=== PATIENT | male | born 1960 | race American Indian/Alaskan Native ===

== ENCOUNTER 2017-12-18 10:31 | Inpatient (IN) | payer OTHER ==
[2017-12-18 11:44] LABS: BUN/Creatinine Ratio 15; Blood Urea Nitrogen 12 mg/dL (9-20); Calcium 9.2 mg/dL (8.4-10.2); Hemolysis Index 6
[2017-12-18 11:48] LABS: Basophils % (Auto) 0.9 % (0.0-1.8); Eosinophils # (Auto) 0.2 K/mm3 (0.0-0.4); Eosinophils % (Auto) 4.2 % (0.0-4.3); Hematocrit 43.2 % (35.5-45.6); Hemoglobin 14.5 gm/dl (11.8-15.2); Lymphocytes # (Auto) 1.7 K/mm3 (1.2-5.4); Lymphocytes % (Auto) 36.2 % (13.4-35.0); Mean Corpuscular HGB Conc 34 % (32-34); Mean Corpuscular Hemoglobin 29 pg (28-32); Mean Corpuscular Volume 85 fl (84-94); Monocytes # (Auto) 0.7 K/mm3 (0.0-0.8); Monocytes % (Auto) 15.3 % (0.0-7.3); Platelet Count 294 K/mm3 (140-440); Red Blood Count 5.07 M/mm3 (3.65-5.03); Red Cell Distribution Width 14.6 % (13.2-15.2)
[2017-12-18] MEDS ORDERED: ASPIRIN PO ONE (13:21)
[2017-12-18] MEDS ORDERED: CATAPRES ONE (13:44)
[2017-12-18] MEDS ORDERED: CATAPRES PO ONE (13:48)
[2017-12-18] MEDS ORDERED: ZOFRAN IV ONE (14:03)
[2017-12-18] MEDS ORDERED: MORPHINE IV ONE (14:05)
--- NOTE | 2017-12-18 14:16 | Emergency Department Report ---
HPI - General Chief Complaint: Chest Pain Time Seen by Provider: 12/18/17 13:51 - HPI HPI: Room 25 The patient is a 57-year-old male presenting with a chief complaint of chest pain. The patient states 2 days ago while on a return flight from the [facility] [place], he began having pain in his right arm and and pressure across his chest. Patient states he developed left arm numbness. The patient states this chest pressure has been intermittent and he currently gives it a score of 8/10. The patient states he's had shortness of breath, nausea/ vomiting and diaphoresis with this chest pain. The patient states he has been out of his blood pressure medication and last night he developed a constant headache. The patient states he's noticed left lower extremity pain and mild swelling for one month. Patient states his last cardiac catheterization occurred 8-9 months ago when he had a cardiac stent placed Location: [See above] Duration: [See above] Quality: Pressure Severity: 8/10 Modifying factors: [see above] Context: [see above] Mode of transportation: [not driving] ED Past Medical Hx - Past Medical History Hx Hypertension: Yes Additional medical history: Hypercholesterolemia - Surgical History Additional Surgical History: Cardiac stent - Family History Family history: no significant - Social History Smoking Status: Never Smoker Substance Use Type: None (denies illicit drug use) ED Review of Systems ROS: Stated complaint: HIGH BLOOD PRESSURE Other details as noted in HPI Constitutional: diaphoresis Eyes: vision change ENT: denies: throat pain Respiratory: shortness of breath Cardiovascular: chest pain Endocrine: no symptoms reported Gastrointestinal: nausea, vomiting Genitourinary: denies: dysuria Musculoskeletal: denies: back pain Neurological: headache Physical Exam - Physical Exam Vital Signs: Vital Signs 12/18/17 12/18/17 12/18/17 10:45 13:21 13:49 Temperature 98.1 F Pulse Rate 66 65 65 Respiratory 20 99 H Rate Blood Pressure 197/121 225/127 Blood Pressure 233/145 [Left] Blood Pressure 225/137 [Right] O2 Sat by Pulse 97 16 L Oximetry Physical Exam: GENERAL: The patient is well-developed well-nourished male lying on stretcher not appearing to be in acute distress. [] HEENT: Normocephalic. Atraumatic. Extraocular motions are intact. Patient has moist mucous membranes. NECK: Supple. Trachea midline CHEST/LUNGS: Clear to auscultation. There is no respiratory distress noted. HEART/CARDIOVASCULAR: Regular. There is no tachycardia. There is no gallop rub or murmur. ABDOMEN: Abdomen is soft, nontender. Patient has normal bowel sounds. There is no abdominal distention. SKIN: There is no rash. There is trace bilateral lower extremity edema. There is no diaphoresis. NEURO: The patient is awake, alert, and oriented. The patient is cooperative. The patient has no focal neurologic deficits. The patient has normal speech MUSCULOSKELETAL: T There is no evidence of acute injury. ED Course Vital Signs 12/18/17 12/18/17 12/18/17 10:45 13:21 13:49 Temperature 98.1 F Pulse Rate 66 65 65 Respiratory 20 99 H Rate Blood Pressure 197/121 225/127 Blood Pressure 233/145 [Left] Blood Pressure 225/137 [Right] O2 Sat by Pulse 97 16 L Oximetry ED Medical Decision Making - Lab Data Result diagrams: 12/18/17 11:07 12/18/17 11:07 Laboratory Tests 12/18/17 12/18/17 12/18/17 11:07 11:07 13:27 WBC 4.8 RBC 5.07 H Hgb 14.5 Hct 43.2 MCV 85 MCH 29 MCHC 34 RDW 14.6 Plt Count 294 Lymph % (Auto) 36.2 H [place] % (Auto) 15.3 H Eos % (Auto) 4.2 Baso % (Auto) 0.9 Lymph # 1.7 [place] # 0.7 Eos # 0.2 Baso # 0.0 Seg Neutrophils % 43.4 Seg Neutrophils # 2.1 Sodium 137 Potassium 3.6 Chloride 95.6 L Carbon Dioxide 28 Anion Gap 17 BUN 12 Creatinine 0.8 Estimated GFR > 60 BUN/Creatinine Ratio 15 Glucose 106 H Calcium 9.2 Troponin T < 0.010 < 0.010 - EKG Data -: EKG Interpreted by Al EKG shows normal: sinus rhythm Rate: normal - EKG Data When compared to previous EKG there are: previous EKG unavailable Interpretation: nonspecific ST-T wave mark (T-wave inversions in leads 1, 2, aVL , V4, V5, V6) - Radiology Data Radiology results: report reviewed (CT head, CT chest, left lower extremity Doppler), image reviewed (CT head, CT chest, left lower extremity Doppler) KB OSUNA Male : 1960 MedRec# [id number] 12/18/17 15:02 - Radiology Dept. Note by TERI KIMBLE Acct Num: [id number] : 1960 Patient Age: 57 VASCULAR LAB.PRELIMINARY REPORT. LLE VENOUS DUPLEX DONE. NO EVIDENCE OF DVT/SVT IN VESSELS VISUALIZED.SOFT TISSUE CHANGES IN THE LT.MID CALF.CRUZITO (RN) INFORMED AT 1456. Initialized on 12/18/17 15:02 - END OF NOTE [address] [address] Cat Scan Report Signed Patient: KB OSUNA MR#: [id number] : 09/1960 Acct:[id number] Age/Sex: 57 / M ADM Date: 12/18/17 Loc: ED Attending Dr: Ordering Physician: OSVALDO WARNER MD Date of Service: 12/18/17 Procedure(s): CT head/brain wo con Accession Number(s): [id number] cc: OSVALDO WARNER MD CT HEAD WITHOUT CONTRAST: HISTORY: Hypertension, headache. TECHNIQUE: Sequential 2.5mm CT images. COMPARISON: none. FINDINGS: Cerebral Parenchyma: Minimal nonspecific chronic white matter changes are identified in both frontal regions. Otherwise, the brain parenchyma attenuation in the merida-white interface are within normal limits. Cerebellum: Within normal limits. Brainstem: Within normal limits. Ventricles: Normal. Sella: Normal. Extra-axial spaces: Normal. Basal Cisterns: Normal. Intracranial Hemorrhage: None. Midline Shift: None. Calvarium: Normal. Sinuses: Normal. Mastoid Air Cells: Normal. Visualized Orbits: Normal. IMPRESSION: No acute intracranial process. Minimal nonspecific chronic white matter changes. Transcribed By: TTR Dictated By: MILLICENT INIGUEZ JR, MD Electronically Authenticated By: MILLICENT INIGUEZ JR, MD Signed Date/Time: 1524 DD/ 1523 TD/TT: 12/18/[address] [address] Cat Scan Report Signed Patient: KB OSUNA MR#: [id number] : 09/1960 Acct:[id number] Age/Sex: 57 / M ADM Date: 12/18/17 Loc: ED Attending Dr: Ordering Physician: OSVALDO WARNER MD Date of Service: 12/18/17 Procedure(s): CT angio chest Accession Number(s): [id number] cc: OSVALDO WARNER MD CTA CHEST: HISTORY: Chest pain, hypertension. COMPARISON: none. TECHNIQUE: Helical CT in 1.25mm intervals following IV contrast. Pulmonary embolus protocol. Sagittal and coronal reformatted images. Rotational MIP images. FINDINGS: Contrast bolus is satisfactory. No pulmonary embolus is identified. Thyroid gland: Normal. Tracheobronchial tree: Normal. Esophagus: Normal. Heart: Normal. Pericardium: Normal. Mediastinum: Normal. Lung Lopez: normal. Pleural Spaces: Normal. Musculoskeletal: Normal. IMPRESSION: No evidence for pulmonary embolus. Unremarkable CT chest with contrast. Transcribed By: TTR Dictated By: MILLICENT INIGUEZ JR, MD Electronically Authenticated By: MILLICENT INIGUEZ JR, MD Signed Date/Time: 12/18/17 154 DD/ 154 TD/TT: 12/18/17 154 - Differential Diagnosis ACS, pericarditis, hypertensive urgency, intracranial hemorrhage, Critical care attestation.: If time is entered above; I have spent that time in minutes in the direct care of this critically ill patient, excluding procedure time. ED Disposition Clinical Impression: Hypertensive urgency, Chest pain, Headache Disposition: - OP ADMIT IP TO THIS HOSP Is pt being admited?: Yes Condition: Fair Instructions: Chest Pain (ED) Referrals: PRIMARY CARE, [Primary Care Provider] - 3-5 Days Time of Disposition: 15:59 (hospitalist paged (Dr Hess))
--- NOTE | 2017-12-18 15:30 | Cat Scan Report ---
CT HEAD WITHOUT CONTRAST: HISTORY: Hypertension, headache. TECHNIQUE: Sequential 2.5mm CT images. COMPARISON: none. FINDINGS: Cerebral Parenchyma: Minimal nonspecific chronic white matter changes are identified in both frontal regions. Otherwise, the brain parenchyma attenuation in the merida-white interface are within normal limits. Cerebellum: Within normal limits. Brainstem: Within normal limits. Ventricles: Normal. Sella: Normal. Extra-axial spaces: Normal. Basal Cisterns: Normal. Intracranial Hemorrhage: None. Midline Shift: None. Calvarium: Normal. Sinuses: Normal. Mastoid Air Cells: Normal. Visualized Orbits: Normal. IMPRESSION: No acute intracranial process. Minimal nonspecific chronic white matter changes.
--- NOTE | 2017-12-18 15:48 | Cat Scan Report ---
CTA CHEST: HISTORY: Chest pain, hypertension. COMPARISON: none. TECHNIQUE: Helical CT in 1.25mm intervals following IV contrast. Pulmonary embolus protocol. Sagittal and coronal reformatted images. Rotational MIP images. FINDINGS: Contrast bolus is satisfactory. No pulmonary embolus is identified. Thyroid gland: Normal. Tracheobronchial tree: Normal. Esophagus: Normal. Heart: Normal. Pericardium: Normal. Mediastinum: Normal. Lung Lopez: normal. Pleural Spaces: Normal. Musculoskeletal: Normal. IMPRESSION: No evidence for pulmonary embolus. Unremarkable CT chest with contrast.
[2017-12-18] MEDS ORDERED: NITRO-BID 2% TP ONE ×2 (15:56)
[2017-12-18] MEDS ORDERED: APRESOLINE ONE (15:56)
[2017-12-18] MEDS ORDERED: APRESOLINE IV ONE (15:57)
[2017-12-18] MEDS ORDERED: TYLENOL PO PRN (20:29)
[2017-12-18] MEDS ORDERED: SODIUM CHLORIDE FLUSH SYRINGE 10 ML IV PRN (20:29)
[2017-12-18] MEDS ORDERED: MORPHINE IV PRN (20:29)
[2017-12-18] MEDS: PEPCID PO SCH (23:12)
[2017-12-18] MEDS: COREG PO SCH (23:13)
[2017-12-18] MEDS: ZOFRAN IV PRN (23:13)
[2017-12-18] MEDS: SODIUM CHLORIDE FLUSH SYRINGE 10 ML IV SCH (23:14)
[2017-12-19 03:10] LABS: Basophils % (Auto) 0.3 % (0.0-1.8); Eosinophils # (Auto) 0.1 K/mm3 (0.0-0.4); Eosinophils % (Auto) 1.1 % (0.0-4.3); Hematocrit 42.7 % (35.5-45.6); Hemoglobin 14.1 gm/dl (11.8-15.2); Lymphocytes # (Auto) 1.3 K/mm3 (1.2-5.4); Lymphocytes % (Auto) 18.8 % (13.4-35.0); Mean Corpuscular HGB Conc 33 % (32-34); Mean Corpuscular Hemoglobin 29 pg (28-32); Mean Corpuscular Volume 86 fl (84-94); Monocytes # (Auto) 0.5 K/mm3 (0.0-0.8); Monocytes % (Auto) 8.2 % (0.0-7.3); Platelet Count 273 K/mm3 (140-440); Red Blood Count 4.95 M/mm3 (3.65-5.03); Red Cell Distribution Width 14.4 % (13.2-15.2)
[2017-12-19 03:27] LABS: Alanine Aminotransferase 16 units/L (7-56); Albumin 3.9 g/dL (3.9-5); BUN/Creatinine Ratio 14; Blood Urea Nitrogen 11 mg/dL (9-20); Calcium 9.1 mg/dL (8.4-10.2); Hemolysis Index 27
--- NOTE | 2017-12-19 06:30 | Event Note ---
Date: 12/18/17 See dictated H/p inreports Hypertensive emergency Chest pain r/o ME
--- NOTE | 2017-12-19 07:09 | History and Physical Report ---
CHIEF COMPLAINT: Chest pain for 2 days. HISTORY OF PRESENT ILLNESS: A 57-year-old black male with history of hypertension, comes in for retrosternal chest pain with radiation to the left arm and left arm numbness. The patient's chest pain is sharp and is about 8 on a scale of 1-10. No nausea. Has diaphoresis with this chest pain. The patient also is not taking his blood pressure medications and has constant headache. The exacerbating factor is noncompliance with medications. The patient had a cardiac catheterization about 9 months ago and had a cardiac stent placed. Recent travel present. The left lower extremity swelling present. PAST MEDICAL HISTORY: Significant for hypertension and hyperlipidemia. PAST SURGICAL HISTORY: Cardiac stents about a year ago. FAMILY HISTORY: Hypertension. SOCIAL HISTORY: Does not smoke. No recreational drugs. REVIEW OF SYSTEMS: Significant for retrosternal chest pain and headache. Otherwise, review of systems negative. A 14-point review of systems done. PHYSICAL EXAMINATION: GENERAL: Middle-aged male, cooperative during examination, in slight distress because of pain. VITAL SIGNS: Initial blood pressure was 205/131, which has come down to 148/82 with the clonidine and hydralazine in the Emergency Room. Respiratory rate is 14, sats are 96%. HEENT: Unremarkable. Pupils equal and reactive. NECK: Supple, no lymphadenopathy, no thyromegaly. LUNGS: Clear to auscultation and percussion. Good air entry. CARDIOVASCULAR: S1, S2 heard. No gallop, no murmur, no rub. Apical impulse in left fifth intercostal space in midclavicular line. ABDOMEN: Soft, benign. No hepatosplenomegaly. No guarding, no rigidity. Hernial orifices are normal. EXTREMITIES: Good pedal pulses. No pedal edema. CENTRAL NERVOUS SYSTEM: Alert and oriented x 4, nonfocal exam. SKIN: Normal. LABORATORY DATA: EKG shows nonspecific ST-T wave changes in lead I, II, aVL, V4, V5, V6. CT chest images reviewed. Angiogram no evidence for pulmonary embolism, unremarkable CT chest with contrast. Duplex scan of lower extremity on the left side, negative for DVT. Head CT, no acute findings. Labs are essentially normal. Electrolytes are normal. LFTs are normal. ASSESSMENT AND PLAN: 1. Hypertensive emergency. The patient reinitiated on his blood pressure medications in the form of losartan and Coreg. The patient advised compliance. Blood pressure has come down to reasonable levels. 2. Chest pain, rule out myocardial infarction, chest pain protocol. Lexiscan in the morning. gastroesophageal reflux disease in differential diagnosis. 3. Coronary artery disease. Aspirin 81 mg to be continued. 4. Deep venous thrombosis prophylaxis, Lovenox 40 mg subcutaneous daily. JOB# [id number] VSM/NTS
[2017-12-19] MEDS ORDERED: LEXISCAN IV ONE ×2 (08:41→08:46)
[2017-12-19] MEDS ORDERED: ZOFRAN ONE (09:20)
[2017-12-19] MEDS: ZOFRAN IV PRN (09:27)
--- NOTE | 2017-12-19 12:32 | Consultation ---
History of Present Illness Consult date: 12/19/17 Consult reason: chest pain History of present illness: This is a 57 year old male with a history of coronary artery disease. A year ago he presented to this hospital with unstable angina, found to have stenosis of the distal right coronary artery by cardiac cath which was treated with a drug eluting stent. Ejection fraction 40-45%. An echocardiogram at that time documents a normal left ventricular systolic function, ejection fraction 50-55% . Since his discharge a year ago, he has not followed up with a business analysis consultant. Patient is also uncertain what medications he takes at home. Patient presented with complaints of chest pain. Noted hypertensive on presentation with a systolic blood pressure of 225. It's reported the patient ran out of his medications several days ago. Cardiac enzymes were normal. No acute ischemic changes on his ECG. Patient was admitted and had a thallium stress test today ordered by the primary team. Medications and Allergies Allergies Allergy/AdvReac Type Severity Reaction Status Date / Time acetaminophen [From Percocet] AdvReac Dizziness Verified 12/18/17 10:45 oxycodone [From Percocet] AdvReac Dizziness Verified 12/18/17 10:45 Home Medications Medication Instructions Recorded Confirmed Last Taken Type No Known Home Medications [No 12/18/17 12/18/17 Unknown History Reported Home Medications] Active Meds: Active Medications Acetaminophen (Tylenol) 650 mg PO Q4H PRN PRN Reason: Pain MILD(1-3)/Fever >100.5/ROMO Amlodipine Besylate (Norvasc) 10 mg PO QDAY [facility] Carvedilol (Coreg) 6.25 mg PO BID [facility] Last Admin: 12/18/17 23:13 Dose: 6.25 mg Enoxaparin Sodium (Lovenox) 40 mg SUB-Q QDAY@2200 [facility] Famotidine (Pepcid) 20 mg PO BID [facility] Last Admin: 12/18/17 23:12 Dose: 20 mg Losartan Potassium (Cozaar) 50 mg PO QDAY [facility] Morphine Sulfate (Morphine) 2 mg IV Q4H PRN PRN Reason: Pain, Moderate (4-6) Ondansetron HCl (Zofran) 4 mg IV Q8H PRN PRN Reason: Nausea And Vomiting Last Admin: 12/19/17 09:27 Dose: 4 mg Sodium Chloride (Sodium Chloride Flush Syringe 10 Ml) 10 ml IV BID [facility] Last Admin: 12/18/17 23:14 Dose: 10 ml Sodium Chloride (Sodium Chloride Flush Syringe 10 Ml) 10 ml IV PRN PRN PRN Reason: LINE FLUSH Physical Examination Vital Signs Temp Pulse Resp BP Pulse Ox 98.1 F 66 20 197/121 97 12/18/17 10:45 12/18/17 10:45 12/18/17 10:45 12/18/17 10:45 12/18/17 10:45 General appearance: no acute distress HEENT: Positive: PERRL Cardiac: Positive: Reg Rate and Rhythm Results 12/19/17 02:45 12/19/17 02:45 Cardiac Enzymes 12/19/17 Range/Units 02:45 AST 17 (5-40) units/L CBC 12/19/17 Range/Units 02:45 WBC 6.7 (4.5-11.0) K/mm3 RBC 4.95 (3.65-5.03) M/mm3 Hgb 14.1 (11.8-15.2) gm/dl Hct 42.7 (35.5-45.6) % Plt Count 273 (140-440) K/mm3 Lymph # 1.3 (1.2-5.4) K/mm3 [place] # 0.5 (0.0-0.8) K/mm3 Eos # 0.1 (0.0-0.4) K/mm3 Baso # 0.0 (0.0-0.1) K/mm3 Comprehensive Metabolic Panel 12/19/17 Range/Units 02:45 Sodium 135 L (137-145) mmol/L Potassium 4.0 (3.6-5.0) mmol/L Chloride 95.5 L (98-107) mmol/L Carbon Dioxide 27 (22-30) mmol/L BUN 11 (9-20) mg/dL Creatinine 0.8 (0.8-1.5) mg/dL Glucose 128 H (75-100) mg/dL Calcium 9.1 (8.4-10.2) mg/dL AST 17 (5-40) units/L ALT 16 (7-56) units/L Alkaline Phosphatase 61 (35-129) units/L Total Protein 6.8 (6.3-8.2) g/dL Albumin 3.9 (3.9-5) g/dL Assessment and Plan Chest pain Hypertensive urgency Hx of CAD s/p PCI of the RCA 11/2016 Noncompliant with medications and outpatient cardiac follow up. EF 50-55% by echo 11/2016.
[2017-12-19] MEDS: SODIUM CHLORIDE FLUSH SYRINGE 10 ML IV SCH ×2 (13:30→22:22)
[2017-12-19] MEDS: COREG PO SCH ×2 (13:31→22:22)
[2017-12-19] MEDS: PEPCID PO SCH ×2 (13:31→22:22)
[2017-12-19] MEDS: NORVASC PO SCH (13:31)
[2017-12-19] MEDS: COZAAR PO SCH ×2 (13:50→13:52)
--- NOTE | 2017-12-19 14:36 | Treadmill Report ---
NUCLEAR PERFUSION STUDY REASON FOR STUDY: Chest pain. IMAGING PROTOCOL: As per single isotope used documented as single isotope protocol. IMAGING RESULTS: Normal cavity size from stress to rest. Normal distribution of the anterior, inferior, septal regions. Gated SPECT, EF 41% with mild global hypokinesis. The patient infused Lexiscan with no EKG changes SUMMARY: 1. Negative Lexiscan EKG. 2. Normal rest and stress myocardial perfusion scan. No significant ischemia. Gated SPECT, ejection fraction 41% with stress echocardiogram for quantification of left ventricular function. JOB# [id number] DEVIN/FABIANO
--- NOTE | 2017-12-19 15:54 | Vascular Lab Report ---
Left Lower Extremity Venous Duplex Study: Reason for Exam: Pain and swelling of the left lower extremity. Comments on the Right: A limited duplex study was done of the proximal veins of the right lower extremity. All veins visualized are freely compressible without evidence of internal echogenicity. Flow is spontaneous and phasic throughout. No evidence of acute or chronic thrombus is seen in any of the vessels visualized. Comments on the Left: All veins visualized are freely compressible without evidence of internal echogenicity. Flow is spontaneous and phasic throughout. No evidence of acute or chronic thrombus is seen in any of the vessels visualized. Nonspecific soft tissue changes are seen in the mid calf. This may represent a hematoma. Clinical correlation is recommended. Impression: No evidence of acute or chronic deep venous thrombosis in the left lower extremity. Possible hematoma in the deep tissue of the mid calf. Clinical correlation recommended.
--- NOTE | 2017-12-19 16:38 | Progress Note ---
Assessment and Plan Assessment and plan: Chest pain. To rule out acute coronary syndrome. Stress test done today,report pending Consult cardiology since has CAD s/p stent placement last year. CAD s/p REPAIRER CYLINDER HEADS of RCA in 11/2016 with JUDSON Hypertensive urgency. Add Norvasc. If BP remains ghigh, will add Clonidine Obesity. I counseled on diet and exercise Full code status History Interval history: Chest pain, No headache Hospitalist Physical - Physical exam Narrative exam: GEN:Not in acute distress,obese HEENT: Normocephalic, atraumatic, Neck: supple, No JVD Lungs:Clear to auscultation bilaterally, no crackles, no wheeze Heart:S1 and S2 reg, no murmurs, rubs or gallop Abd:soft, NT, non-distended, Normal BS Ext: No edema, clubbing or cyanosis Neuro:Awake,alert,oriented x 3, no focal neurological signs Psych: Normal mood - Constitutional Vitals: Temp Pulse Resp BP Pulse Ox 98.4 F 60 20 160/84 98 12/19/17 12:22 12/19/17 12:22 12/19/17 12:22 12/19/17 13:31 12/19/17 12:22 General appearance: Present: no acute distress Results - Labs CBC & Chem 7: 12/19/17 02:45 12/19/17 02:45 Labs: Laboratory Last Values WBC 6.7 K/mm3 (4.5-11.0) 12/19/17 02:45 RBC 4.95 M/mm3 (3.65-5.03) 12/19/17 02:45 Hgb 14.1 gm/dl (11.8-15.2) 12/19/17 02:45 Hct 42.7 % (35.5-45.6) 12/19/17 02:45 MCV 86 fl (84-94) 12/19/17 02:45 MCH 29 pg (28-32) 12/19/17 02:45 MCHC 33 % (32-34) 12/19/17 02:45 RDW 14.4 % (13.2-15.2) 12/19/17 02:45 Plt Count 273 K/mm3 (140-440) 12/19/17 02:45 Lymph % (Auto) 18.8 % (13.4-35.0) 12/19/17 02:45 [place] % (Auto) 8.2 % (0.0-7.3) H 12/19/17 02:45 Eos % (Auto) 1.1 % (0.0-4.3) 12/19/17 02:45 Baso % (Auto) 0.3 % (0.0-1.8) 12/19/17 02:45 Lymph # 1.3 K/mm3 (1.2-5.4) 12/19/17 02:45 [place] # 0.5 K/mm3 (0.0-0.8) 12/19/17 02:45 Eos # 0.1 K/mm3 (0.0-0.4) 12/19/17 02:45 Baso # 0.0 K/mm3 (0.0-0.1) 12/19/17 02:45 Seg Neutrophils % 71.6 % (40.0-70.0) H 12/19/17 02:45 Seg Neutrophils # 4.8 K/mm3 (1.8-7.7) 12/19/17 02:45 Sodium 135 mmol/L (137-145) L 12/19/17 02:45 Potassium 4.0 mmol/L (3.6-5.0) 12/19/17 02:45 Chloride 95.5 mmol/L (98-107) L 12/19/17 02:45 Carbon Dioxide 27 mmol/L (22-30) 12/19/17 02:45 Anion Gap 17 mmol/L 12/19/17 02:45 BUN 11 mg/dL (9-20) 12/19/17 02:45 Creatinine 0.8 mg/dL (0.8-1.5) 12/19/17 02:45 Estimated GFR > 60 ml/min 12/19/17 02:45 BUN/Creatinine Ratio 14 % 12/19/17 02:45 Glucose 128 mg/dL (75-100) H 12/19/17 02:45 Calcium 9.1 mg/dL (8.4-10.2) 12/19/17 02:45 Total Bilirubin 0.30 mg/dL (0.1-1.2) 12/19/17 02:45 AST 17 units/L (5-40) 12/19/17 02:45 ALT 16 units/L (7-56) 12/19/17 02:45 Alkaline Phosphatase 61 units/L (35-129) 12/19/17 02:45 Troponin T < 0.010 ng/mL (0.00-0.029) 12/19/17 12:36 Total Protein 6.8 g/dL (6.3-8.2) 12/19/17 02:45 Albumin 3.9 g/dL (3.9-5) 12/19/17 02:45 Albumin/Globulin Ratio 1.3 % 12/19/17 02:45
[2017-12-19] MEDS: CATAPRES PO SCH (18:50)
[2017-12-19] MEDS ORDERED: APRESOLINE IV ONE (19:01)
[2017-12-19] MEDS ORDERED: LOVENOX SUB-Q SCH (22:00)
[2017-12-19] MEDS ORDERED: FLONASE NS PRN (22:05)
[2017-12-20] MEDS: COREG PO SCH (09:03)
[2017-12-20] MEDS: SODIUM CHLORIDE FLUSH SYRINGE 10 ML IV SCH (09:03)
[2017-12-20] MEDS: COZAAR PO SCH (09:03)
[2017-12-20] MEDS: PEPCID PO SCH (09:03)
[2017-12-20] MEDS: CATAPRES PO SCH (09:03)
[2017-12-20] MEDS: NORVASC PO SCH (09:03)
--- NOTE | 2017-12-20 09:56 | Progress Note ---
Assessment and Plan Chest pain no ischemia by MPI this admission Hypertensive urgency -improved Hx of CAD s/p PCI of the RCA 11/2016 Noncompliant with medications and outpatient cardiac follow up. EF 50-55% by echo 11/2016. Recommendations: Medical therapy for coronary artery disease including plavix and aspirin. Stable cardiac mcclendon for discharge. Patient will f/u with [facility]. January 03 at 930a. Subjective Date of service: 12/20/17 Interval history: Patient reports he is feeling better. He denies chest pain. BP is better. Objective Vital Signs Temp Pulse Resp BP BP Pulse Ox 12/20/17 05:45 98.1 F 65 20 121/71 95 12/20/17 01:15 98.0 F 65 20 132/73 94 12/19/17 22:22 76 156/88 12/19/17 20:26 97.7 F 71 18 156/88 98 12/19/17 19:09 178/103 12/19/17 18:50 178/103 12/19/17 15:54 97.9 F 69 20 184/112 96 12/19/17 13:31 160/84 12/19/17 13:00 58 L 12/19/17 12:53 99.0 F 79 20 168/89 96 12/19/17 12:22 98.4 F 60 20 160/84 98 12/19/17 10:00 20 - Physical Examination General: No Apparent Distress HEENT: Positive: PERRL Cardiac: Positive: Reg Rate and Rhythm Neuro: Positive: Grossly Intact Extremities: Absent: edema
[2017-12-20] MEDS ORDERED: PLAVIX PO SCH (10:00)
[2017-12-20] MEDS ORDERED: BABY ASPIRIN PO SCH (10:00)
--- NOTE | 2017-12-20 12:02 | Discharge Summary ---
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 2.Follow up with [facility] Dec, Follow up with: PRIMARY CARE, [Primary Care Provider] - 3-5 Days Prescriptions: amLODIPine [Norvasc] 10 mg PO QDAY #30 tablet Aspirin [Adult Low Dose Aspirin EC] 81 mg PO DAILY #30 tablet. AtorvaSTATin [Lipitor] 40 mg PO QHS #30 tablet Losartan [Cozaar] 50 mg PO QDAY #30 tablet
[2017-12-20 13:18] VITALS: BP 126/67
== END 2017-12-20 19:56 | disposition home or self-care (01) | DRG 305 ==
LOC: ED 10:31 → 4A 20:29
PROVIDERS: ADMIT Internal Medicine; ATTEND Internal Medicine
DX: I16.1 Hypertensive emergency (principal); I16.0 Hypertensive urgency; E78.00 Pure hypercholesterolemia, unspecified; I25.10 Atherosclerotic heart disease of native coronary artery without angina pectoris; E66.9 Obesity, unspecified; R07.9 Chest pain, unspecified; Z82.49 Family history of ischemic heart disease and other diseases of the circulatory system; Z88.6 Allergy status to analgesic agent; Z88.5 Allergy status to narcotic agent; Z91.14 Patient's other noncompliance with medication regimen; Z95.5 Presence of coronary angioplasty implant and graft; Z68.32 Body mass index [BMI] 32.0-32.9, adult; Z71.3 Dietary counseling and surveillance
CPT/HCPCS: 36415; 70450; 71275; 78452; 80048; 80053; 84484; 85025; 93005; 93010; 93017; 96374; A9502; J0360; J1650; J2270; J2405; J2785; Q9967

== ENCOUNTER 2018-01-03 09:10 | Emergency (ER) | payer SELFPAY ==
[2018-01-03 09:18] VITALS: BP 165/98
[2018-01-03] MEDS ORDERED: TORADOL IM ONE (10:08)
[2018-01-03] MEDS ORDERED: ZOFRAN IM ONE (10:08)
--- NOTE | 2018-01-03 10:11 | Emergency Department Report ---
ED Abdominal Pain HPI - General Chief Complaint: Abdominal Pain Stated Complaint: STOMACH/NAUSEA Time Seen by Provider: 01/03/18 10:03 Source: patient Mode of arrival: Ambulatory Limitations: No Limitations - History of Present Illness Initial Comments: Patient is 57 years old male history of hypertension and hyperlipidemia. Patient presented to the ER complaining of abdominal pain, diffuse, crampy in nature with no radiation. Associated with his nausea but no vomiting or diarrhea. Patient denied any fever or chills. Patient stated that he ate a [employer] sandwich for dinner last night and as soon as he finished he started having the abdominal pain and the nausea. Patient denied any chest pain, shortness of breath, back pain or other complaint. MD Complaint: abdominal pain - Related Data Previous Rx's Medication Instructions Recorded Last Taken Type Zolpidem [Ambien] 5 mg PO QHS PRN #10 tablet 11/10/16 12/16/17 21:00 Rx Ticagrelor [Brilinta] 90 mg PO BID #60 tablet 02/20/17 12/16/17 10:00 Rx Metoprolol [Lopressor TAB] 50 mg PO BID #60 tablet 06/05/17 12/16/17 10:00 Rx Aspirin [Adult Low Dose Aspirin EC] 81 mg PO DAILY #30 tablet. 12/20/17 Unknown Rx AtorvaSTATin [Lipitor] 40 mg PO QHS #30 tablet 12/20/17 Unknown Rx Famotidine [Pepcid] 20 mg PO BID #60 tablet 12/20/17 Unknown Rx Losartan [Cozaar] 50 mg PO QDAY #30 tablet 12/20/17 Unknown Rx amLODIPine [Norvasc] 10 mg PO QDAY #30 tablet 12/20/17 Unknown Rx Allergies Allergy/AdvReac Type Severity Reaction Status Date / Time prednisone Allergy Hives Verified 01/03/18 09:15 acetaminophen [From Percocet] AdvReac Dizziness Verified 01/03/18 09:15 oxycodone [From Percocet] AdvReac Dizziness Verified 01/03/18 09:15 oxycodone HCl [From Percocet] AdvReac Unknown Verified 01/03/18 09:15 ED Review of Systems ROS: Stated complaint: STOMACH/NAUSEA Other details as noted in HPI Comment: All other systems reviewed and negative Constitutional: denies: chills, fever Respiratory: denies: cough, shortness of breath Cardiovascular: denies: chest pain Gastrointestinal: abdominal pain, nausea. denies: vomiting, diarrhea, constipation, hematemesis, hematochezia Skin: denies: rash Neurological: denies: headache, weakness, numbness, paresthesias, confusion ED Past Medical Hx - Past Medical History Hx Hypertension: Yes Hx Heart Attack/AMI: No Hx Congestive Heart Failure: No Hx Diabetes: No Hx Asthma: No Hx COPD: No Additional medical history: Hypercholesterolemia - Surgical History Hx Coronary Stent: Yes (2017) Additional Surgical History: Cardiac stent - Social History Smoking Status: Never Smoker Substance Use Type: None - Medications Home Medications: Home Medications Medication Instructions Recorded Confirmed Last Taken Type Zolpidem [Ambien] 5 mg PO QHS PRN #10 tablet 11/10/16 12/20/17 12/16/17 21:00 Rx Ticagrelor [Brilinta] 90 mg PO BID #60 tablet 02/20/17 12/20/17 12/16/17 10:00 Rx Metoprolol [Lopressor TAB] 50 mg PO BID #60 tablet 06/05/17 12/20/17 12/16/17 10 :00 Rx Aspirin [Adult Low Dose Aspirin EC] 81 mg PO DAILY #30 tablet. 12/20/17 Unknown Rx AtorvaSTATin [Lipitor] 40 mg PO QHS #30 tablet 12/20/17 Unknown Rx Famotidine [Pepcid] 20 mg PO BID #60 tablet 12/20/17 Unknown Rx Losartan [Cozaar] 50 mg PO QDAY #30 tablet 12/20/17 Unknown Rx amLODIPine [Norvasc] 10 mg PO QDAY #30 tablet 12/20/17 Unknown Rx ED Physical Exam - General Limitations: No Limitations General appearance: alert, in no apparent distress - Head Head exam: Present: atraumatic, normocephalic, normal inspection - Eye Eye exam: Present: normal appearance - ENT ENT exam: Present: normal exam, normal orophraynx, mucous membranes moist - Neck Neck exam: Present: normal inspection, full ROM. Absent: tenderness, meningismus, lymphadenopathy, thyromegaly - Respiratory Respiratory exam: Present: normal lung sounds bilaterally. Absent: respiratory distress, wheezes, rales, rhonchi, chest wall tenderness, decreased breath sounds, prolonged expiratory - Cardiovascular Cardiovascular Exam: Present: regular rate, normal rhythm, normal heart sounds - GI/Abdominal GI/Abdominal exam: Present: soft, normal bowel sounds. Absent: distended, tenderness, guarding, rebound, rigid, organomegaly, mass, bruit, pulsatile mass , hernia - Extremities Exam Extremities exam: Present: normal inspection, full ROM, normal capillary refill , pedal edema. Absent: calf tenderness - Back Exam Back exam: Present: normal inspection, full ROM. Absent: tenderness, CVA tenderness (R), CVA tenderness (L), muscle spasm, paraspinal tenderness, vertebral tenderness, rash noted - Neurological Exam Neurological exam: Present: alert, oriented X3, CN II-XII intact, normal gait, reflexes normal - Skin Skin exam: Present: warm, intact, normal color ED Course Vital Signs 01/03/18 01/03/18 09:15 10:07 Temperature 97.9 F Pulse Rate 69 Respiratory 18 17 Rate Blood Pressure 165/98 O2 Sat by Pulse 97 Oximetry ED Medical Decision Making - Lab Data Result diagrams: 01/03/18 10:15 01/03/18 10:15 - Radiology Data Radiology results: report reviewed Referring Physician: MANUEL MONTALVO Patient Name: BK OSUNA Date of : 1960 Sex: Male Report Date: 2018-01-03 Report Status: Finalized Findings [address] [address] XRay Report Signed Patient: KB OSUNA MR#: [id number] : 1960 Acct:[id number] Age/Sex: 57 / M ADM Date: 01/03/18 Loc: ED Attending Dr: Ordering Physician: MANUEL MONTALVO Date of Service: 01/03/18 Procedure(s): XR abd series w cxr 1V Accession Number(s): [id number] cc: MANUEL MONTALVO Fluoro Time In Minutes: ABDOMINAL SERIES: History: Abdominal pain. Erect chest film shows no acute or significant changes involving the heart or lung shay. There is no evidence of free air beneath the diaphragms. The gas pattern within the abdomen is unremarkable. There is no evidence of bowel dilatation, significant air-fluid levels, or masses. Organ shadows are unremarkable. IMPRESSION: Abdominal series within normal limits. Transcribed By: TTR Dictated By: MILLICENT INIGUEZ JR, MD Electronically Authenticated By: MILLICENT INIGUEZ JR, MD Signed Date/Time: 01/03/18 1044 DD/ 1044 TD/TT: 01/03/18 1044 Critical care attestation.: If time is entered above; I have spent that time in minutes in the direct care of this critically ill patient, excluding procedure time. ED Disposition Clinical Impression: Abdominal pain, Food poisoning Disposition: DC-01 TO HOME OR SELFCARE Is pt being admited?: No Condition: Stable Instructions: Abdominal Pain (ED), Food Poisoning (ED) Referrals: PRIMARY CARE, [Primary Care Provider] - 3-5 Days
[2018-01-03 10:29] LABS: Basophils # (Auto) 0.1 K/mm3 (0.0-0.1); Eosinophils # (Auto) 0.2 K/mm3 (0.0-0.4); Hematocrit 43.4 % (35.5-45.6); Hemoglobin 14.5 gm/dl (11.8-15.2); Lymphocytes # (Auto) 1.9 K/mm3 (1.2-5.4); Lymphocytes % (Auto) 35.4 % (13.4-35.0); Mean Corpuscular HGB Conc 33 % (32-34); Mean Corpuscular Hemoglobin 29 pg (28-32); Mean Corpuscular Volume 86 fl (84-94); Monocytes # (Auto) 0.8 K/mm3 (0.0-0.8); Monocytes % (Auto) 14.4 % (0.0-7.3); Platelet Count 313 K/mm3 (140-440); Red Blood Count 5.02 M/mm3 (3.65-5.03); Red Cell Distribution Width 14.3 % (13.2-15.2)
--- NOTE | 2018-01-03 10:45 | XRay Report ---
ABDOMINAL SERIES: History: Abdominal pain. Erect chest film shows no acute or significant changes involving the heart or lung shay. There is no evidence of free air beneath the diaphragms. The gas pattern within the abdomen is unremarkable. There is no evidence of bowel dilatation, significant air-fluid levels, or masses. Organ shadows are unremarkable. IMPRESSION: Abdominal series within normal limits.
[2018-01-03 10:50] LABS: Alanine Aminotransferase 19 units/L (7-56); BUN/Creatinine Ratio 17; Blood Urea Nitrogen 12 mg/dL (9-20); Calcium 9.1 mg/dL (8.4-10.2); Hemolysis Index 8
[2018-01-03 10:51] LABS: Bilirubin,Direct < 0.2 mg/dL (0-0.2)
[2018-01-03 11:01] LABS: Lipase 24 units/L (13-60)
[2018-01-03 11:21] LABS: Bilirubin,Urine NEG (Negative); Blood,Urine NEG (Negative); Color,Urine Yellow (Yellow); Mucus,Urine FEW /HPF; Urobilinogen,Urine < 2.0 mg/dL (<2.0)
== END 2018-01-03 11:43 | disposition home or self-care (01) ==
LOC: ED 09:10
DX: T62.8X1A Toxic effect of other specified noxious substances eaten as food, accidental (unintentional), initial encounter (principal); I10 Essential (primary) hypertension; E78.00 Pure hypercholesterolemia, unspecified; Z88.8 Allergy status to other drugs, medicaments and biological substances; Y92.89 Other specified places as the place of occurrence of the external cause
CPT/HCPCS: 36415; 74022; 80048; 80074; 81001; 83690; 83880; 85025; 96372; 99283; J1885; J2405

== ENCOUNTER 2019-08-23 06:37 | Observation (INO) | payer OTHER ==
[2019-08-23 07:02] LABS: Basophils # (Auto) 0.1 K/mm3 (0.0-0.1); Eosinophils # (Auto) 0.4 K/mm3 (0.0-0.4); Eosinophils % (Auto) 4.9 % (0.0-4.3); Monocytes # (Auto) 0.9 K/mm3 (0.0-0.8); Monocytes % (Auto) 11.7 % (0.0-7.3)
--- NOTE | 2019-08-23 07:06 | XRay Report ---
CHEST 1 VIEW 08/23/2019 7:01 AM INDICATION / CLINICAL INFORMATION: Chest Pain. COMPARISON: 01/03/18 FINDINGS: SUPPORT DEVICES: None. HEART / MEDIASTINUM: No significant abnormality. LUNGS / PLEURA: No significant pulmonary or pleural abnormality. No pneumothorax. ADDITIONAL FINDINGS: No significant additional findings. IMPRESSION: 1. No acute findings. No change. Signer Name: Neema Rai MD Signed: 08/23/2019 7:02 AM Workstation Name: [id number]
[2019-08-23 07:22] LABS: BUN/Creatinine Ratio 12; Blood Urea Nitrogen 11 mg/dL (9-20); Calcium 9.2 mg/dL (8.4-10.2); Hemolysis Index 47
[2019-08-23 07:31] LABS: Red Blood Count 5.38 M/mm3 (3.65-5.03)
[2019-08-23 07:32] LABS: Hematocrit 46.2 % (35.5-45.6); Hemoglobin 15.4 gm/dl (11.8-15.2); Mean Corpuscular HGB Conc 33 % (32-34); Mean Corpuscular Volume 86 fl (84-94); Platelet Count 343 K/mm3 (140-440); Red Cell Distribution Width 14.2 % (13.2-15.2)
[2019-08-23 07:33] LABS: Basophils % (Auto) 1.3 % (0.0-1.8); Lymphocytes % (Auto) 41.5 % (13.4-35.0)
[2019-08-23] MEDS ORDERED: fentaNYL 100 MCG/2 ML INJ IV ONE (09:33)
[2019-08-23] MEDS ORDERED: ASPIRIN 325 MG TAB PO ONE (09:33)
[2019-08-23] MEDS ORDERED: ONDANSETRON 4 MG/2 ML INJ IV ONE (09:33)
[2019-08-23] MEDS ORDERED: NITROGLYCERIN 2% OINT 1 GM TP ONE (09:33)
[2019-08-23] MEDS ORDERED: cloNIDine 0.2 MG TAB PO ONE (09:34)
--- NOTE | 2019-08-23 09:39 | Emergency Department Report ---
HPI - General Chief Complaint: Chest Pain Time Seen by Provider: 08/23/19 09:22 - HPI HPI: Room 3 The patient is a 58-year-old male present with a chief complaint of chest pain. Patient states yesterday he developed left wrist pain and shortness of breath. The patient states this morning at 03: 00 he developed pain in the left upper extremity and substernal chest described as "strong" in nature. Patient states the pain was intermittent and would last 5 minutes and resolve. Patient admits to shortness of breath with this pain but denies nausea/vomiting or diaphoresis. Patient admits to chest pain currently and gives it a score of 9/10. Patient has had a cardiac stent placed in 2017. ED Past Medical Hx - Past Medical History Previous Medical History?: Yes Hx Hypertension: Yes Additional medical history: Hypercholesterolemia - Surgical History Past Surgical History?: Yes Hx Coronary Stent: Yes (2016) Additional Surgical History: Cardiac stent - Family History Family history: no significant - Social History Smoking Status: Never Smoker Substance Use Type: None - Medications Home Medications: Home Medications Medication Instructions Recorded Confirmed Last Taken Type Zolpidem [Ambien] 5 mg PO QHS PRN #10 tablet 11/10/16 12/20/17 12/16/17 21:00 Rx Ticagrelor [Brilinta] 90 mg PO BID #60 tablet 02/20/17 12/20/17 12/16/17 10:00 Rx Metoprolol [Lopressor TAB] 50 mg PO BID #60 tablet 06/05/17 12/20/17 12/16/17 10:00 Rx Aspirin [Adult Low Dose Aspirin EC] 81 mg PO DAILY #30 tablet. 12/20/17 Unknown Rx AtorvaSTATin [Lipitor] 40 mg PO QHS #30 tablet 12/20/17 Unknown Rx Famotidine [Pepcid] 20 mg PO BID #60 tablet 12/20/17 Unknown Rx Losartan [Cozaar] 50 mg PO QDAY #30 tablet 12/20/17 Unknown Rx amLODIPine 10 mg PO QDAY #30 tablet 12/20/17 Unknown Rx Ketorolac [Toradol] 10 mg PO Q6H PRN #14 tablet 01/03/18 Unknown Rx Ondansetron [Zofran Odt] 4 mg PO Q8HR PRN #14 tab.rapdis 01/03/18 Unknown Rx ED Review of Systems ROS: Stated complaint: CHEST PAIN Other details as noted in HPI Constitutional: denies: diaphoresis Eyes: denies: eye pain ENT: denies: throat pain Respiratory: shortness of breath Cardiovascular: chest pain Endocrine: no symptoms reported Gastrointestinal: denies: nausea, vomiting Musculoskeletal: denies: back pain Neurological: denies: headache Physical Exam - Physical Exam Vital Signs: Vital Signs 08/23/19 06:49 Temperature 97.7 F Pulse Rate 63 Respiratory 20 Rate Blood Pressure 187/109 O2 Sat by Pulse 97 Oximetry Physical Exam: GENERAL: The patient is well-developed well-nourished male sitting on stretcher not appearing to be in acute distress. [] HEENT: Normocephalic. Atraumatic. Extraocular motions are intact. Patient has moist mucous membranes. NECK: Supple. Trachea midline CHEST/LUNGS: Clear to auscultation. There is no respiratory distress noted. HEART/CARDIOVASCULAR: Regular. There is no tachycardia. There is no gallop rub or murmur. ABDOMEN: Abdomen is soft, nontender. Patient has normal bowel sounds. There is no abdominal distention. SKIN: There is no rash. There is no edema. There is no diaphoresis. NEURO: The patient is awake, alert, and oriented. The patient is cooperative. The patient has normal speech MUSCULOSKELETAL: There is no evidence of acute injury. ED Course Vital Signs 08/23/19 06:49 Temperature 97.7 F Pulse Rate 63 Respiratory 20 Rate Blood Pressure 187/109 O2 Sat by Pulse 97 Oximetry ED Medical Decision Making - Lab Data Result diagrams: 08/23/19 06:50 08/23/19 06:50 Laboratory Tests 08/23/19 08/23/19 06:50 06:50 WBC 5.4 RBC 5.38 H Hgb 15.4 H Hct 46.2 H MCV 86 MCH 29 MCHC 33 RDW 14.2 Plt Count 343 Lymph % (Auto) 41.5 H [place] % (Auto) 11.7 H Eos % (Auto) 4.9 H Baso % (Auto) 1.3 Lymph # 3.0 [place]ne # 0.9 H Eos # 0.4 Baso # 0.1 Add Manual Diff Complete Seg Neutrophils % 40.6 Seg Neutrophils # 3.0 Sodium 137 Potassium 3.5 L Chloride 95.1 L Carbon Dioxide 26 Anion Gap 19 BUN 11 Creatinine 0.9 Estimated GFR > 60 BUN/Creatinine Ratio 12 Glucose 150 H Calcium 9.2 Troponin T < 0.010 - EKG Data -: EKG Interpreted by Me EKG shows normal: sinus rhythm Rate: normal - EKG Data When compared to previous EKG there are: no significant change Interpretation: unchanged when compared t (12/18/2017) - Radiology Data Radiology results: report reviewed (Chest x-ray), image reviewed (Chest x-ray) interpreted by me: Chest x-ray-no focal infiltrates, no pneumothorax [facility] [address] [place] [address] XRay Report Signed Patient: KB ALICEA MR#: [id number] : 1960 Acct:[id number] Age/Sex: 58 / M ADM Date: 08/23/19 Loc: ED Attending Dr: Ordering Physician: ED MD SALOMON Date of Service: 08/23/19 Procedure(s): XR chest 1V ap Accession Number(s): [id number] cc: ED MD SALOMON Fluoro Time In Minutes: CHEST 1 VIEW 08/23/2019 7:01 AM INDICATION / CLINICAL INFORMATION: Chest Pain. COMPARISON: 01/03/18 FINDINGS: SUPPORT DEVICES: None. HEART / MEDIASTINUM: No significant abnormality. LUNGS / PLEURA: No significant pulmonary or pleural abnormality. No pneumothorax. ADDITIONAL FINDINGS: No significant additional findings. IMPRESSION: 1. No acute findings. No change. Signer Name: Neema Rai MD Signed: 08/23/2019 7:02 AM Workstation Name: [id number] Transcribed By: DT Dictated By: Juan Rai MD Electronically Authenticated By: Juan Rai MD Signed Date/Time: 08/23/19701 DD/ 0 TD/TT: - Differential Diagnosis ACS, pericarditis, GERD Critical care attestation.: If time is entered above; I have spent that time in minutes in the direct care of this critically ill patient, excluding procedure time. ED Disposition Clinical Impression: Chest pain Disposition: 09 OP ADMIT IP TO THIS HOSP Is pt being admited?: Yes Does the pt Need Aspirin: Yes Condition: Fair Instructions: Chest Pain (ED) Referrals: PRIMARY CARE, [Primary Care Provider] - 3-5 Days Time of Disposition: 09:42 (Hospitalist paged) GIOVANNI score - Giovanni Score Age > 65: (0) No Aspirin use within the Past 7 Days: (1) Yes 3 or more CAD Risk Factors: (1) Yes 2 or more Angina events in past 24 hrs: (1) Yes Known CAD with more than 50% Stenosis: (1) Yes Elevated Cardiac Markers: (0) No ST Deviation Greater than 0.5mm: (0) No GIOVANNI Score: 4
--- NOTE | 2019-08-23 12:35 | History and Physical Report ---
History of Present Illness Date of examination: 08/23/19 Date of admission: 08/23/19 09:45 Chief complaint: cp History of present illness: The patient is a 58-year-old male present with a chief complaint of chest pain. Patient states yesterday he developed left wrist pain and shortness of breath. The patient states this morning at 03:00 he developed pain in the left upper extremity and substernal chest described as "strong" in nature. Patient states the pain was intermittent and would last 5 minutes and resolve. Patient admits to shortness of breath with this pain but denies nausea/vomiting or diaphoresis. Patient admits to chest pain currently and gives it a score of 9/10. Patient has had a cardiac stent placed in 2017. PUI?: No Past History Past Medical History: CAD, hypertension, hyperlipidemia Past Surgical History: Other ( cardiac stent placed in 2017.) Social history: no significant social history Family history: no significant family history Medications and Allergies Allergies Allergy/AdvReac Type Severity Reaction Status Date / Time prednisone Allergy Hives Verified 01/03/18 09:15 acetaminophen [From Percocet] AdvReac Dizziness Verified 01/03/18 09:15 oxycodone [From Percocet] AdvReac Dizziness Verified 01/03/18 09:15 oxycodone HCl [From Percocet] AdvReac Unknown Verified 01/03/18 09:15 Home Medications Medication Instructions Recorded Confirmed Last Taken Type Zolpidem [Ambien] 5 mg PO QHS PRN #10 tablet 11/10/16 12/20/17 12/16/17 21:00 Rx Ticagrelor [Brilinta] 90 mg PO BID #60 tablet 02/20/17 12/20/17 12/16/17 10:00 Rx Metoprolol [Lopressor TAB] 50 mg PO BID #60 tablet 06/05/17 12/20/17 12/16/17 10:00 Rx Aspirin [Adult Low Dose Aspirin EC] 81 mg PO DAILY #30 tablet. 12/20/17 Pearl coronel Rx AtorvaSTATin [Lipitor] 40 mg PO QHS #30 tablet 12/20/17 Unknown Rx Famotidine [Pepcid] 20 mg PO BID #60 tablet 12/20/17 Unknown Rx Losartan [Cozaar] 50 mg PO QDAY #30 tablet 12/20/17 Unknown Rx amLODIPine 10 mg PO QDAY #30 tablet 12/20/17 Unknown Rx Ketorolac [Toradol] 10 mg PO Q6H PRN #14 tablet 01/03/18 Unknown Rx Ondansetron [Zofran Odt] 4 mg PO Q8HR PRN #14 tab.rapdis 01/03/18 Unknown Rx Review of Systems All systems: negative Exam - Constitutional Vitals: Temp Pulse Resp BP Pulse Ox 97.7 F 55 L 15 162/94 94 08/23/19 06:49 08/23/19 10:45 08/23/19 10:45 08/23/19 10:45 08/23/19 10:45 General appearance: Present: no acute distress, well-nourished - EENT Eyes: Present: PERRL ENT: hearing intact, clear oral mucosa - Neck Neck: Present: supple, normal ROM - Respiratory Respiratory effort: normal Respiratory: bilateral: CTA - Cardiovascular Heart Sounds: Present: S1 & S2. Absent: rub, click - Extremities Extremities: pulses symmetrical, No edema Peripheral Pulses: within normal limits - Abdominal General gastrointestinal: Present: soft, non-tender, non-distended, normal bowel sounds Male genitourinary: Present: normal - Integumentary Integumentary: Present: clear, warm, dry - Musculoskeletal Musculoskeletal: gait normal, strength equal bilaterally - Psychiatric Psychiatric: appropriate mood/affect, intact judgment & insight - Neurologic Neurologic: CNII-XII intact, moves all extremities MICHAEL score - Michael Score Age > 65: (0) No Aspirin use within the Past 7 Days: (1) Yes 3 or more CAD Risk Factors: (1) Yes 2 or more Angina events in past 24 hrs: (1) Yes Known CAD with more than 50% Stenosis: (1) Yes Elevated Cardiac Markers: (0) No ST Deviation Greater than 0.5mm: (0) No MICHAEL Score: 4 Results - Labs CBC & Chem 7: 08/23/19 06:50 08/23/19 06:50 Labs: Laboratory Last Values WBC 5.4 K/mm3 (4.5-11.0) 08/23/19 06:50 RBC 5.38 M/mm3 (3.65-5.03) H 08/23/19 06:50 Hgb 15.4 gm/dl (11.8-15.2) H 08/23/19 06:50 Hct 46.2 % (35.5-45.6) H 08/23/19 06:50 MCV 86 fl (84-94) 08/23/19 06:50 MCH 29 pg (28-32) 08/23/19 06:50 MCHC 33 % (32-34) 08/23/19 06:50 RDW 14.2 % (13.2-15.2) 08/23/19 06:50 Plt Count 343 K/mm3 (140-440) 08/23/19 06:50 Lymph % (Auto) 41.5 % (13.4-35.0) H 08/23/19 06:50 Christian % (Auto) 11.7 % (0.0-7.3) H 08/23/19 06:50 Eos % (Auto) 4.9 % (0.0-4.3) H 08/23/19 06:50 Baso % (Auto) 1.3 % (0.0-1.8) 08/23/19 06:50 Lymph # 3.0 K/mm3 (1.2-5.4) 08/23/19 06:50 Christian # 0.9 K/mm3 (0.0-0.8) H 08/23/19 06:50 Eos # 0.4 K/mm3 (0.0-0.4) 08/23/19 06:50 Baso # 0.1 K/mm3 (0.0-0.1) 08/23/19 06:50 Add Manual Diff Complete 08/23/19 06:50 Seg Neutrophils % 40.6 % (40.0-70.0) 08/23/19 06:50 Seg Neutrophils # 3.0 K/mm3 (1.8-7.7) 08/23/19 06:50 Sodium 137 mmol/L (137-145) 08/23/19 06:50 Potassium 3.5 mmol/L (3.6-5.0) L 08/23/19 06:50 Chloride 95.1 mmol/L (98-107) L 08/23/19 06:50 Carbon Dioxide 26 mmol/L (22-30) 08/23/19 06:50 Anion Gap 19 mmol/L 08/23/19 06:50 BUN 11 mg/dL (9-20) 08/23/19 06:50 Creatinine 0.9 mg/dL (0.8-1.5) 08/23/19 06:50 Estimated GFR > 60 ml/min 08/23/19 06:50 BUN/Creatinine Ratio 12 % 08/23/19 06:50 Glucose 150 mg/dL (75-100) H 08/23/19 06:50 Calcium 9.2 mg/dL (8.4-10.2) 08/23/19 06:50 Troponin T < 0.010 ng/mL (0.00-0.029) 08/23/19 Unknown [place]/IV: IV Catheter Type [Left INT / Saline Lock Antecubital] Assessment and Plan Assessment and plan: Chest pain. No ischemia by MPI 12/2017. Hx of CAD s/p PCI of the RCA 11/2016 Hypertension. Continue antihypertensive medications. Hyperlipidemia. Continue statins. Medical Noncompliance. Noncompliant with medications and outpatient cardiac follow up.
[2019-08-23] MEDS ORDERED: ONDANSETRON 4 MG/2 ML INJ IV PRN (12:52)
[2019-08-23] MEDS ORDERED: ACETAMINOPHEN 325 MG TAB PO PRN (12:52)
[2019-08-23] MEDS ORDERED: ONDANSETRON 4 MG ODT TAB PO PRN (13:02)
[2019-08-23] MEDS ORDERED: ZOLPIDEM 5 MG TAB PO PRN (13:02)
[2019-08-23 13:47] LABS: Basophils # (Auto) 0.1 K/mm3 (0.0-0.1); Basophils % (Auto) 1.3 % (0.0-1.8); Eosinophils # (Auto) 0.3 K/mm3 (0.0-0.4); Eosinophils % (Auto) 5.3 % (0.0-4.3); Hemoglobin 14.4 gm/dl (11.8-15.2); Lymphocytes # (Auto) 2.1 K/mm3 (1.2-5.4); Lymphocytes % (Auto) 42.3 % (13.4-35.0); Mean Corpuscular HGB Conc 34 % (32-34); Mean Corpuscular Volume 86 fl (84-94); Monocytes # (Auto) 0.4 K/mm3 (0.0-0.8); Monocytes % (Auto) 8.2 % (0.0-7.3); Platelet Count 302 K/mm3 (140-440); Red Cell Distribution Width 14.2 % (13.2-15.2)
[2019-08-23 14:16] LABS: BUN/Creatinine Ratio 13; Blood Urea Nitrogen 12 mg/dL (9-20); Calcium 9.1 mg/dL (8.4-10.2); Hemolysis Index 9
--- NOTE | 2019-08-23 16:35 | Consultation ---
History of Present Illness Consult date: 08/23/19 Consult reason: chest pain History of present illness: The patient is a 58-year-old man with a history of hypertension and coronary artery disease. In 2017, he underwent coronary stenting of the distal right coronary artery with a drug-eluting stent, indication at that time was unstable angina. A year later in 2018, he was admitted with atypical chest pain and follow-up Lexiscan thallium stress test was negative. The patient admits to poor compliance with medical therapy including his antihypertensive therapy, and poor compliance with outpatient doctor visits including his cardiac outpatient follow-ups. He presents to the hospital at this time with chest pain. He describes atypical, nonexertional left-sided chest pain. On presentation, his blood pressure was uncontrolled at 180s systolic. He states that he took the "last samples" of his medications the day prior to his presentation. He is unable to identify what medicines he currently takes. ECG on this presentation is normal sinus rhythm, left ventricle hypertrophy with repolarization abnormalities of LVH. The ECG is unchanged from his previous baseline. Serial cardiac troponin levels are normal. An echocardiogram was done today, ordered by the medical service. His left ventricular ejection fraction is 50 to 55%, there is mild to moderate concentric left ventricle hypertrophy, there is mild mitral regurgitation. The echo findings are unchanged from his prior echocardiogram done in 2018. Currently the patient is sitting up in his chair in the telemetry room, appears comfortable, no acute distress, no complaints at the current time. Past History Past Medical History: CAD, hypertension, hyperlipidemia Past Surgical History: PTCA Social history: no significant social history Family history: no significant family history Medications and Allergies Allergies Allergy/AdvReac Type Severity Reaction Status Date / Time prednisone Allergy Hives Verified 01/03/18 09:15 acetaminophen [From Percocet] AdvReac Dizziness Verified 01/03/18 09:15 oxycodone [From Percocet] AdvReac Dizziness Verified 01/03/18 09:15 oxycodone HCl [From Percocet] AdvReac Unknown Verified 01/03/18 09:15 Home Medications Medication Instructions Recorded Confirmed Last Taken Type Zolpidem [Ambien] 5 mg PO QHS PRN #10 tablet 11/10/16 12/20/17 12/16/17 21:00 Rx Ticagrelor [Brilinta] 90 mg PO BID #60 tablet 02/20/17 12/20/17 12/16/17 10:00 Rx Metoprolol [Lopressor TAB] 50 mg PO BID #60 tablet 06/05/17 12/20/17 12/16/17 10:00 Rx Aspirin [Adult Low Dose Aspirin EC] 81 mg PO DAILY #30 tablet. 12/20/17 Unknown Rx AtorvaSTATin [Lipitor] 40 mg PO QHS #30 tablet 12/20/17 Unknown Rx Famotidine [Pepcid] 20 mg PO BID #60 tablet 12/20/17 Unknown Rx Losartan [Cozaar] 50 mg PO QDAY #30 tablet 12/20/17 Unknown Rx amLODIPine 10 mg PO QDAY #30 tablet 12/20/17 Unknown Rx Ketorolac [Toradol] 10 mg PO Q6H PRN #14 tablet 01/03/18 Unknown Rx Ondansetron [Zofran Odt] 4 mg PO Q8HR PRN #14 tab.rapdis 01/03/18 Unknown Rx Active Meds: Active Medications Acetaminophen (Tylenol) 650 mg PO Q4H PRN PRN Reason: Pain MILD(1-3)/Fever >100.5/ROMO Amlodipine Besylate (Amlodipine) 10 mg PO QDAY JAVY Aspirin (Halfprin Ec) 81 mg PO DAILY JAVY Atorvastatin Calcium (Lipitor) 40 mg PO QHS JAVY Famotidine (Pepcid) 20 mg PO BID JAVY Losartan Potassium (Cozaar) 50 mg PO QDAY JAVY Metoprolol Tartrate (Metoprolol) 50 mg PO BID JAVY Ondansetron HCl (Zofran) 4 mg IV Q8H PRN PRN Reason: Nausea And Vomiting Ondansetron HCl (Zofran Odt) 4 mg PO Q8HR PRN PRN Reason: Nausea And Vomiting Sodium Chloride (Sodium Chloride Flush Syringe 10 Ml) 10 ml IV BID JAVY Sodium Chloride (Sodium Chloride Flush Syringe 10 Ml) 10 ml IV PRN PRN PRN Reason: LINE FLUSH Ticagrelor (Brilinta) 90 mg PO BID JAVY Zolpidem Tartrate (Ambien) 5 mg PO QHS PRN PRN Reason: Sleep Review of Systems Cardiovascular: chest pain, no orthopnea, no palpitations, no rapid/irregular heart beat, no edema, no syncope, no lightheadedness, no shortness of breath Physical Examination Vital Signs Temp Pulse Resp BP Pulse Ox 97.7 F 63 20 187/109 97 08/23/19 06:49 08/23/19 06:49 08/23/19 06:49 08/23/19 06:49 08/23/19 06:49 General appearance: no acute distress HEENT: Positive: PERRL Neck: Positive: neck supple Cardiac: Positive: Reg Rate and Rhythm Lungs: Positive: Decreased Breath Sounds Neuro: Positive: Grossly Intact Abdomen: Positive: Soft Male genitourinary: Positive: deferred Skin: Positive: Clear Extremities: Absent: edema Results 08/23/19 13:33 08/23/19 13:33 CBC 08/23/19 08/23/19 Range/Units 06:50 13:33 WBC 5.4 4.9 (4.5-11.0) K/mm3 RBC 5.38 H 5.00 (3.65-5.03) M/mm3 Hgb 15.4 H 14.4 (11.8-15.2) gm/dl Hct 46.2 H 43.0 (35.5-45.6) % Plt Count 343 302 (140-440) K/mm3 Lymph # 3.0 2.1 (1.2-5.4) K/mm3 [place] # 0.9 H 0.4 (0.0-0.8) K/mm3 Eos # 0.4 0.3 (0.0-0.4) K/mm3 Baso # 0.1 0.1 (0.0-0.1) K/mm3 Comprehensive Metabolic Panel 08/23/19 08/23/19 Range/Units 06:50 13:33 Sodium 137 136 L (137-145) mmol/L Potassium 3.5 L 3.4 L (3.6-5.0) mmol/L Chloride 95.1 L 96.3 L (98-107) mmol/L Carbon Dioxide 26 24 (22-30) mmol/L BUN 11 12 (9-20) mg/dL Creatinine 0.9 0.9 (0.8-1.5) mg/dL Glucose 150 H 185 H (75-100) mg/dL Calcium 9.2 9.1 (8.4-10.2) mg/dL EKG interpretations - Telemetry EKG Rhythm: Sinus Rhythm (Left ventricle hypertrophy with repolarization abnormalities of LVH) Assessment and Plan - Patient Problems (1) Chest pain Current Visit: Yes Status: Acute Plan to address problem: Patient's chest pain is atypical, ECG and cardiac enzymes are unremarkable. We will recommend an exercise treadmill with thallium perfusion imaging in the morning. (2) CAD (coronary artery disease) Current Visit: No Status: Acute Plan to address problem: Patient has a history of coronary artery disease with drug-eluting distal right coronary artery stent implanted in 2017. We will recommend medical therapy with atorvastatin, metoprolol, aspirin and Plavix. I would recommend clinical social worker consult, to assist patient in maintaining compliance with his medical regimen in the outpatient setting. (3) Hypertensive urgency Current Visit: No Status: Acute Plan to address problem: Patient is admittedly noncompliant with his antihypertensive regimen. Will recommend Procardia XL 60 mg in addition to losartan 50 mg for optimal blood pressure control. I have discontinued amlodipine. The patient is recommended for low-salt diet and optimal outpatient follow-up and management of his chronic hypertension.
[2019-08-23] MEDS: NIFEdipine XL 60 MG TAB PO SCH (17:56)
[2019-08-23] MEDS: METOPROLOL TARTRATE 50 MG TAB PO SCH (21:51)
[2019-08-23] MEDS: FAMOTIDINE 20 MG TAB PO SCH (21:51)
[2019-08-23] MEDS ORDERED: TICAGRELOR 90 MG TAB PO SCH (22:00)
[2019-08-23] MEDS ORDERED: FLUTICASONE PROPIONATE NASAL SPRAY 16 GM NS PRN (23:18)
[2019-08-24] MEDS ORDERED: REGADENOSON 0.4 MG/5 ML INJ IV ONE ×2 (08:11→08:17)
--- NOTE | 2019-08-24 09:24 | Discharge Summary ---
Providers - Providers Date of Admission: 08/23/19 09:45 Date of discharge: 08/24/19 Attending physician: EDDI WINTERS 08/23/19 Consult to Cardiac Rehabilitation [CONS] Routine Reason For Exam: Phase I 08/23/19 12:52 Consult to Physician [CONS] Routine Comment: Consulting Provider: KAYLA AGEE Physician Instructions: Reason For Exam: cp Primary care physician: MANAGER INVENTORY MANAGEMENT Hospitalization Reason for admission: cp Condition: Fair Hospital course: The patient is a 58-year-old man with a history of hypertension and coronary artery disease. In 2017, he underwent coronary stenting of the distal right coronary artery with a drug-eluting stent, indication at that time was unstable angina. A year later in 2018, he was admitted with atypical chest pain and follow-up Lexiscan thallium stress test was negative. The patient admits to poor compliance with medical therapy including his antihypertensive therapy, and poor compliance with outpatient doctor visits including his cardiac outpatient follow-ups. He presented to the hospital at this time with chest pain on 08/23/2019. He described atypical, nonexertional left-sided chest pain. On presentation, his blood pressure was uncontrolled at 180s systolic. He was unable to identify what medicines he currently takes. ECG on this admission was noted to be normal sinus rhythm, left ventricle hypertrophy with repolarization abnormalities of LVH. The patient was admitted with diagnosis of accelerated hypertension and chest pain. The ECG is unchanged from his previous baseline. Serial cardiac troponin levels were normal. An echocardiogram was completed on this hospitalization and revealed EF of 50 to 55% and global left ventricular systolic function at the lower limits of normal with mild to moderate concentric left ventricular hypertrophy. The echo findings are unchanged from his prior echocardiogram done in 2018. Cardiology saw the patient in consultation and recommended stress thallium. Patient also had adjustments in medications with Procardia and losartan with good blood pressure control. If thallium results are negative, patient will be discharged home. Dedicated discharge time 35 minutes. Disposition: -01 TO HOME OR SELFCARE Time spent for discharge: 35 - Discharge Diagnoses (1) Chest pain Status: Acute (2) CAD (coronary artery disease) Status: Acute (3) Hypertensive urgency Status: Acute Core Measure Documentation - Palliative Care Palliative Care/ Comfort Measures: Not Applicable - Core Measures Any of the following diagnoses?: none Exam - Constitutional Vitals: Temp Pulse Resp BP Pulse Ox 99.4 F 68 18 144/82 94 08/24/19 08:17 08/24/19 08:17 08/24/19 08:17 08/24/19 08:17 08/24/19 08:17 General appearance: Present: no acute distress, well-nourished - EENT Eyes: Present: PERRL ENT: hearing intact, clear oral mucosa - Neck Neck: Present: supple, normal ROM - Respiratory Respiratory effort: normal Respiratory: bilateral: CTA - Cardiovascular Heart Sounds: Present: S1 & S2. Absent: rub, click - Extremities Extremities: pulses symmetrical, No edema Peripheral Pulses: within normal limits - Abdominal General gastrointestinal: Present: soft, non-tender, non-distended, normal bowel sounds Male genitourinary: Present: normal - Integumentary Integumentary: Present: clear, warm, dry - Musculoskeletal Musculoskeletal: gait normal, strength equal bilaterally - Psychiatric Psychiatric: appropriate mood/affect, intact judgment & insight - Neurologic Neurologic: CNII-XII intact, moves all extremities Plan Activity: advance as tolerated Weight Bearing Status: Weight Bear as Tolerated Diet: low fat, low cholesterol, low salt Follow up with: PRIMARY CAREMD [Primary Care Provider] - 3-5 Days KAYLA AGEE MD [Staff Physician] - 7 Days Prescriptions: Losartan [Cozaar] 50 mg PO QDAY #30 tablet AtorvaSTATin [Lipitor] 40 mg PO QHS #30 tablet Metoprolol [Lopressor TAB] 50 mg PO BID #60 tablet Famotidine [Pepcid] 20 mg PO BID #60 tablet Clopidogrel [Plavix] 75 mg PO QDAY #30 tablet NIFEdipine XL [Procardia Xl] 60 mg PO QDAY #30 tablet
[2019-08-24] MEDS ORDERED: CLOPIDOGREL 75 MG TAB PO SCH (10:00)
[2019-08-24] MEDS ORDERED: LOSARTAN 50 MG TAB PO SCH (10:00)
[2019-08-24] MEDS ORDERED: amLODIPine 10 MG TAB PO SCH (10:00)
[2019-08-24] MEDS ORDERED: ASPIRIN EC 81 MG TAB PO SCH (10:00)
--- NOTE | 2019-08-24 10:27 | Progress Note ---
Assessment and Plan 1. Precordial chest pain resolved 2. Coronary artery disease status post PCI. 3. Essential hypertension 4. Hyperlipidemia 5. Obesity Plan. Cardiac mc[place]on stable patient had stress thallium scan done today. He exercised normally for 9 minutes on the treadmill using a regular Marlon protocol achieving more than 85% of maximum predicted heart rate for age and sex without symptoms of angina or ischemic EKG changes. Lexiscan scans are normal. Subjective Date of service: 08/24/19 Interval history: No cardiac complains Objective Vital Signs Temp Pulse Resp BP Pulse Ox 08/24/19 08:17 99.4 F 68 18 144/82 94 08/24/19 04:10 98.7 F 60 18 111/54 96 08/24/19 03:28 56 L 08/23/19 23:28 98.7 F 64 18 123/77 95 08/23/19 21:51 71 127/73 08/23/19 19:59 74 08/23/19 19:35 97.6 F 73 18 127/73 96 08/23/19 11:21 60 14 147/96 97 08/23/19 11:11 57 L 16 147/96 95 08/23/19 11:00 58 L 15 147/96 96 08/23/19 10:51 65 17 162/94 97 08/23/19 10:45 55 L 15 162/94 94 08/23/19 10:30 60 11 L 162/94 97 - Physical Examination General: Appears Well HEENT: Positive: PERRL Neck: Positive: neck supple Cardiac: Positive: Reg Rate and Rhythm, Regular Rate, S1/S2, S4, PMI, Laterally Displaced Lungs: Positive: clear to auscultation, No Wheeze, Rales, Rhonchi Neuro: Positive: Grossly Intact Abdomen: Positive: Unremarkable, Soft Skin: Positive: Clear Extremities: Absent: edema - Labs and Meds CBC 08/23/19 Range/Units 13:33 WBC 4.9 (4.5-11.0) K/mm3 RBC 5.00 (3.65-5.03) M/mm3 Hgb 14.4 (11.8-15.2) gm/dl Hct 43.0 (35.5-45.6) % Plt Count 302 (140-440) K/mm3 Lymph # 2.1 (1.2-5.4) K/mm3 [place] # 0.4 (0.0-0.8) K/mm3 Eos # 0.3 (0.0-0.4) K/mm3 Baso # 0.1 (0.0-0.1) K/mm3 Comprehensive Metabolic Panel 08/23/19 Range/Units 13:33 Sodium 136 L (137-145) mmol/L Potassium 3.4 L (3.6-5.0) mmol/L Chloride 96.3 L (98-107) mmol/L Carbon Dioxide 24 (22-30) mmol/L BUN 12 (9-20) mg/dL Creatinine 0.9 (0.8-1.5) mg/dL Glucose 185 H (75-100) mg/dL Calcium 9.1 (8.4-10.2) mg/dL
[2019-08-24] MEDS: FAMOTIDINE 20 MG TAB PO SCH (10:39)
[2019-08-24] MEDS: NIFEdipine XL 60 MG TAB PO SCH (12:46)
[2019-08-24] MEDS: METOPROLOL TARTRATE 50 MG TAB PO SCH (12:47)
[2019-08-24 12:48] VITALS: BP 154/94
--- NOTE | 2019-08-26 10:42 | Treadmill Report ---
THALLIUM STRESS TEST LEFT VENTRICLE: Left ventricle is at the upper limits of normal in size. Perfusion study demonstrates a small to moderate sized, fixed basal inferolateral defect. On the resting study, there is minimal to no significant reversibility. Gated analysis demonstrates well preserved left ventricular systolic function with ejection fraction calculated at 53%. 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 There is minimal to no significant reversible ischemia, clinical correlation is recommended. [facility]# [id number] [place]/NTS
== END 2019-08-24 13:30 | disposition home or self-care (01) ==
LOC: ED 06:37 → 4A 09:45
PROVIDERS: ADMIT Hospitalist; ATTEND Hospitalist
DX: R07.89 Other chest pain (principal); I16.0 Hypertensive urgency; I25.10 Atherosclerotic heart disease of native coronary artery without angina pectoris; E78.5 Hyperlipidemia, unspecified; E66.9 Obesity, unspecified; Z91.14 Patient's other noncompliance with medication regimen; Z95.1 Presence of aortocoronary bypass graft; Z79.82 Long term (current) use of aspirin; Z68.34 Body mass index [BMI] 34.0-34.9, adult
CPT/HCPCS: 36415; 71045; 78452; 80048; 84484; 85025; 93005; 93010; 93017; 93306; 96374; 99285; A9270; A9502; G0378; J2405; J2785; J3010; Q0162

== ENCOUNTER 2020-03-20 10:29 | Emergency (ER) | payer SELFPAY ==
[2020-03-20] MEDS ORDERED: ASPIRIN 325 MG TAB PO ONE (10:44)
[2020-03-20] MEDS ORDERED: CLOPIDOGREL 75 MG TAB PO ONE (11:00)
[2020-03-20] MEDS ORDERED: NIFEdipine XL 60 MG TAB PO SCH (11:00)
[2020-03-20] MEDS ORDERED: LOSARTAN 50 MG TAB PO ONE (11:00)
[2020-03-20] MEDS ORDERED: METOPROLOL TARTRATE 50 MG TAB PO ONE (11:00)
--- NOTE | 2020-03-20 11:20 | Emergency Department Report ---
ED Chest Pain HPI - General Chief Complaint: Chest Pain Stated Complaint: HIGH B/P Time Seen by Provider: 03/20/20 10:56 Source: patient, old records reviewed Mode of arrival: Ambulatory Limitations: No Limitations - History of Present Illness Initial Comments: 59-year-old male with a past medical history of hypertension, elevated cholesterol, CAD with stent, and chronic medication noncompliance presents to the hospital planing of elevated blood pressure last 3 to 4 days and chest pain since yesterday. Patient has been out of all his blood pressure medications for the last 3 weeks. He checks his blood pressure daily and states he has been elevated higher than normal for last 3 to 4 days. Yesterday he developed left upper chest wall "pinching", intermediate, nonexertional pain worse with palpation and while lying on his left side. Today he developed some dizziness, some mild difficulty with inspiration and some nausea without vomiting or diaphoresis. Denies calf tenderness, leg edema, history of PE/DVT, or tobacco use. Patient has been compliant with 81 mg of aspirin daily. As per medical record review patient was admitted here in August for chest pain underwent chest pain work-up please see note below. As per discharge summary written by Dr. Salter on August 24, 2019 he patient is a 58-year-old man with a history of hypertension and coronary artery disease. In 2017, he underwent coronary stenting of the distal right coronary artery with a drug-eluting stent, indication at that time was unstable angina. A year later in 2017, he was admitted with atypical chest pain and follow-up Lexiscan thallium stress test was negative. The patient admits to poor compliance with medical therapy including his antihypertensive therapy, and poor compliance with outpatient doctor visits including his cardiac outpatient f [facility]. He presented to the hospital at this time with chest pain on 08/23/2019. He described atypical, nonexertional left-sided chest pain. On presentation, his blood pressure was uncontrolled at 180s systolic. He was unable to identify what medicines he currently takes. ECG on this admission was noted to be normal sinus rhythm, left ventricle hypertrophy with repolarization abnormalities of LVH. The patient was admitted with diagnosis of accelerated hypertension and chest pain. The ECG is unchanged from his previous baseline. Serial cardiac troponin levels were normal. An echocardiogram was completed on this hospitalization and revealed EF of 50 to 55% and global left ventricular systolic function at the lower limits of normal with mild to moderate concentric left ventricular hypertrophy. The echo findings are unchanged from his prior echocardiogram done in 2018. Cardiology saw the patient in consultation and recommended stress thallium. Patient also had adjustments in medications with Procardia and losartan with good blood pressure control. If thallium results are negative, patient will be discharged home. Dedicated discharge time 35 minutes. Patient stress thallium was negative prior to discharge. Severity scale (0 -10): 0 - Related Data Previous Rx's Medication Instructions Recorded Last Taken Type Zolpidem [Ambien] 5 mg PO QHS PRN #10 tablet 11/10/16 12/21/19 Rx Ticagrelor [Brilinta] 90 mg PO BID #60 tablet 02/20/17 12/21/19 Rx Aspirin [Adult Low Dose Aspirin EC] 81 mg PO DAILY #30 tablet.dr 12/20/17 12/21/19 Rx Ketorolac [Toradol] 10 mg PO Q6H PRN #14 tablet 01/03/18 12/21/19 Rx Ondansetron [Zofran ODT TAB] 4 mg PO Q8HR PRN #14 tab.rapdis 01/03/18 12/21/19 Rx Aspirin [Aspirin BABY CHEW TAB] 81 mg PO QDAY #30 tab.chew 03/20/20 Unknown Rx AtorvaSTATin [Lipitor] 40 mg PO QHS #30 tablet 03/20/20 Unknown Rx Clopidogrel [Plavix] 75 mg PO QDAY #30 tablet 03/20/20 Unknown Rx Famotidine [Pepcid] 20 mg PO BID #60 tablet 03/20/20 Unknown Rx Losartan [Cozaar] 50 mg PO QDAY #30 tablet 03/20/20 Unknown Rx Metoprolol [Lopressor TAB] 50 mg PO BID #60 tablet 03/20/20 Unknown Rx NIFEdipine XL [Procardia Xl] 60 mg PO QDAY #30 tablet 03/20/20 Unknown Rx Allergies Allergy/AdvReac Type Severity Reaction Status Date / Time prednisone Allergy Hives Verified 01/03/18 09:15 acetaminophen [From Percocet] AdvReac Dizziness Verified 01/03/18 09:15 oxycodone [From Percocet] AdvReac Dizziness Verified 01/03/18 09:15 oxycodone HCl [From Percocet] AdvReac Unknown Verified 01/03/18 09:15 Heart Score - HEART Score History: Slightly suspicious EKG: Non-specific Age: 45-65 Risk factors: > 3 risk factors or hx of atherosclerotic disease Troponin: < normal limit HEART Score: 4 ED Review of Systems ROS: Stated complaint: HIGH B/P Other details as noted in HPI Comment: All other systems reviewed and negative ED Past Medical Hx - Past Medical History Previous Medical History?: Yes Hx Hypertension: Yes Hx Heart Attack/AMI: No Hx Congestive Heart Failure: No Hx Diabetes: No Hx Asthma: No Hx COPD: No Hx HIV: No Additional medical history: Hypercholesterolemia - Surgical History Past Surgical History?: Yes Hx Coronary Stent: Yes (2017) Additional Surgical History: Cardiac stent - Social History Smoking Status: Never Smoker Substance Use Type: None - Medications Home Medications: Home Medications Medication Instructions Recorded Confirmed Last Taken Type Zolpidem [Ambien] 5 mg PO QHS PRN #10 tablet 11/10/16 03/20/20 12/21/19 Rx Ticagrelor [Brilinta] 90 mg PO BID #60 tablet 02/20/17 03/20/20 12/21/19 Rx Aspirin [Adult Low Dose Aspirin EC] 81 mg PO DAILY #30 tablet. 12/20/17 03/20/20 12/21/19 Rx Ketorolac [Toradol] 10 mg PO Q6H PRN #14 tablet 01/03/18 03/20/20 12/21/19 Rx Ondansetron [Zofran ODT TAB] 4 mg PO Q8HR PRN #14 tab.rapdis 01/03/18 03/20/20 12/21/19 Rx Aspirin [Aspirin BABY CHEW TAB] 81 mg PO QDAY #30 tab.chew 03/20/20 Unknown Rx AtorvaSTATin [Lipitor] 40 mg PO QHS #30 tablet 03/20/20 Unknown Rx Clopidogrel [Plavix] 75 mg PO QDAY #30 tablet 03/20/20 Unknown Rx Famotidine [Pepcid] 20 mg PO BID #60 tablet 03/20/20 Unknown Rx Losartan [Cozaar] 50 mg PO QDAY #30 tablet 03/20/20 Unknown Rx Metoprolol [Lopressor TAB] 50 mg PO BID #60 tablet 03/20/20 Unknown Rx NIFEdipine XL [Procardia Xl] 60 mg PO QDAY #30 tablet 03/20/20 Unknown Rx ED Physical Exam - General Limitations: No Limitations - Other Other exam information: General: No acute distress Head: Atraumatic Eyes: normal appearance ENT: Moist mucous membranes Neck: Normal appearance, no midline tenderness Chest: Clear to auscultation bilaterally, reproducible upper left chest wall tenderness CV: Regular rate and rhythm Abdomen: Soft, normal bowel sounds, nontender, nondistended, no rebound or guarding Back: Normal inspection Extremity: Normal inspection, full range of motion, no calf tenderness or leg edema Neuro: Alert O x 3, no facial asymmetry, speech clear, no gross motor sensory deficit Psych: Appropriate behavior Skin: No rash ED Course Vital Signs 03/20/20 03/20/20 03/20/20 10:42 10:58 11:00 Temperature 98.2 F Pulse Rate 72 70 73 Respiratory 18 19 22 Rate Blood Pressure 208/132 Blood Pressure [Left] O2 Sat by Pulse 96 95 96 Oximetry 03/20/20 03/20/20 03/20/20 11:02 11:09 11:15 Temperature Pulse Rate 72 71 71 Respiratory 18 20 Rate Blood Pressure 217/138 214/140 Blood Pressure 217/138 [Left] O2 Sat by Pulse 96 94 Oximetry 03/20/20 03/20/20 03/20/20 11:30 11:46 12:00 Temperature Pulse Rate 67 62 62 Respiratory 18 19 13 Rate Blood Pressure 214/140 183/123 186/121 Blood Pressure [Left] O2 Sat by Pulse 95 95 96 Oximetry 03/20/20 03/20/20 03/20/20 12:15 12:35 12:45 Temperature Pulse Rate 60 61 61 Respiratory 15 14 12 Rate Blood Pressure 185/121 183/123 181/126 Blood Pressure [Left] O2 Sat by Pulse 93 96 95 Oximetry 03/20/20 03/20/20 03/20/20 13:00 13:15 13:30 Temperature Pulse Rate 57 L 59 L 57 L Respiratory 20 16 13 Rate Blood Pressure 174/117 167/110 177/109 Blood Pressure [Left] O2 Sat by Pulse 93 92 94 Oximetry 03/20/20 03/20/20 03/20/20 13:45 14:00 14:15 Temperature Pulse Rate 58 L 61 Respiratory 12 15 Rate Blood Pressure 152/104 145/94 150/95 Blood Pressure [Left] O2 Sat by Pulse 92 94 93 Oximetry 03/20/20 03/20/20 14:30 14:45 Temperature Pulse Rate 60 60 Respiratory 17 16 Rate Blood Pressure 146/91 145/90 Blood Pressure [Left] O2 Sat by Pulse 92 91 Oximetry - Consultations Consultation #1: 03/20/20 15:45 I did rediscuss case with Dr. Agee regarding medication changes. He does not recommend any medication changes at this time since his blood pressure has improved with his current doses. He did suggest case management evaluation for assistance given that he is uninsured and chronically noncompliant secondary to his uninsured status. 03/20/20 15:46 I did discuss case with Kimberly with case management who states there is nothing else for them to offer other than referring to discounted clinics and MDs providing affordable medications upon discharge GIOVANNI score - Giovanni Score Age > 65: (0) No Aspirin use within the Past 7 Days: (1) Yes 3 or more CAD Risk Factors: (1) Yes 2 or more Angina events in past 24 hrs: (1) Yes Known CAD with more than 50% Stenosis: (1) Yes Elevated Cardiac Markers: (0) No ST Deviation Greater than 0.5mm: (0) No GIOVANNI Score: 4 ED Medical Decision Making - Lab Data Result diagrams: 03/20/20 10:47 03/20/20 10:47 Lab Results 03/20/20 03/20/20 03/20/20 Range/Units 10:47 10:47 11:07 WBC 6.0 (4.5-11.0) K/mm3 RBC 5.29 H (3.65-5.03) M/mm3 Hgb 15.6 H (11.8-15.2) gm/dl Hct 46.2 H (35.5-45.6) % MCV 87 (84-94) fl MCH 29 (28-32) pg MCHC 34 (32-34) % RDW 14.2 (13.2-15.2) % Plt Count 265 (140-440) K/mm3 Lymph % (Auto) 36.2 H (13.4-35.0) % [place] % (Auto) 14.4 H (0.0-7.3) % Eos % (Auto) 2.4 (0.0-4.3) % Baso % (Auto) 0.9 (0.0-1.8) % Lymph # (Auto) 2.2 (1.2-5.4) K/mm3 [place] # (Auto) 0.9 H (0.0-0.8) K/mm3 Eos # (Auto) 0.1 (0.0-0.4) K/mm3 Baso # (Auto) 0.1 (0.0-0.1) K/mm3 Seg Neutrophils % 46.1 (40.0-70.0) % Seg Neutrophils # 2.8 (1.8-7.7) K/mm3 D-Dimer < 135 (0-234) ng/mlDDU Sodium 137 (137-145) mmol/L Potassium 3.3 L (3.6-5.0) mmol/L Chloride 93.0 L (98-107) mmol/L Carbon Dioxide 37 H (22-30) mmol/L Anion Gap 10 mmol/L BUN 19 (9-20) mg/dL Creatinine 1.1 (0.8-1.3) mg/dL Estimated GFR > 60 ml/min BUN/Creatinine Ratio 17 % Glucose 125 H (75-100) mg/dL Calcium 9.3 (8.4-10.2) mg/dL Troponin T < 0.010 (0.00-0.029) ng/mL 03/20/ Range/Units 14:09 WBC (4.5-11.0) K/mm3 RBC (3.65-5.03) M/mm3 Hgb (11.8-15.2) gm/dl Hct (35.5-45.6) % MCV (84-94) fl MCH (28-32) pg MCHC (32-34) % RDW (13.2-15.2) % Plt Count (140-440) K/mm3 Lymph % (Auto) (13.4-35.0) % [place] % (Auto) (0.0-7.3) % Eos % (Auto) (0.0-4.3) % Baso % (Auto) (0.0-1.8) % Lymph # (Auto) (1.2-5.4) K/mm3 [place] # (Auto) (0.0-0.8) K/mm3 Eos # (Auto) (0.0-0.4) K/mm3 Baso # (Auto) (0.0-0.1) K/mm3 Seg Neutrophils % (40.0-70.0) % Seg Neutrophils # (1.8-7.7) K/mm3 D-Dimer (0-234) ng/mlDDU Sodium (137-145) mmol/L Potassium (3.6-5.0) mmol/L Chloride (98-107) mmol/L Carbon Dioxide (22-30) mmol/L Anion Gap mmol/L BUN (9-20) mg/dL Creatinine (0.8-1.3) mg/dL Estimated GFR ml/min BUN/Creatinine Ratio % Glucose (75-100) mg/dL Calcium (8.4-10.2) mg/dL Troponin T < 0.010 (0.00-0.029) ng/mL - EKG Data -: EKG Interpreted by Me EKG shows normal: sinus rhythm, ST-T waves (LVH with repole) Rate: normal - EKG Data When compared to previous EKG there are: no significant change - Radiology Data Radiology results: report reviewed CHEST 1 VIEW 03/20/2020 10:19 AM INDICATION / CLINICAL INFORMATION: Chest Pain. COMPARISON: 08/23/2019 FINDINGS: SUPPORT DEVICES: None. HEART / MEDIASTINUM: No significant abnormality. LUNGS / PLEURA: No significant pulmonary or pleural abnormality. No pneumothorax. ADDITIONAL FINDINGS: No significant additional findings. IMPRESSION: 1. No acute findings. No significant change. - Medical Decision Making 59-year-old male presents with atypical reproducible upper chest wall pain that is with palpation and lying on his left side. Patient also reports elevated blood pressure last several days with intermittent dizziness with medication noncompliance for last 3 weeks. Patient's blood pressure improved, and provided his prescribed medications. During ED stay patient has remained stable with unchanged EKG and negative troponin x2. Cardiology consult appreciated. Patient did have recent admission a cardiac work-up as per medical record and previous documentation. Patient will provide a refill his medication with a 1 month supply, good Rx card, and referrals to several discounted clinics to ass ist with outpatient care. Cardiology referral to [facility] also provided. Critical Care Time: No Critical care attestation.: If time is entered above; I have spent that time in minutes in the direct care of this critically ill patient, excluding procedure time. ED Disposition Clinical Impression: Atypical chest pain, Uncontrolled hypertension, Noncompliance with medication regimen Disposition: TO HOME OR SELFCARE Is pt being admited?: No Does the pt Need Aspirin: No Condition: Stable Instructions: Chest Wall Pain, Hypertension, Adult, Chest Pain (ED), Hyperten aris (ED) Additional Instructions: Take the medication as prescribed. Follow-up with your doctor or doctor/clinic provided. Return if symptoms worsen as indicated by your discharge instructions. Prescriptions: Aspirin [Aspirin BABY CHEW TAB] 81 mg PO QDAY #30 tab.chew Losartan [Cozaar] 50 mg PO QDAY #30 tablet AtorvaSTATin [Lipitor] 40 mg PO QHS #30 tablet Metoprolol [Lopressor TAB] 50 mg PO BID #60 tablet Famotidine [Pepcid] 20 mg PO BID #60 tablet Clopidogrel [Plavix] 75 mg PO QDAY #30 tablet NIFEdipine XL [Procardia Xl] 60 mg PO QDAY #30 tablet Referrals: [facility] [Provider Group] - 3-5 Days (Primary care clinic) VIDYA CARTAGENA MD [Staff Physician] - 3-5 Days (Primary care doctor) KAYLA AGEE MD [Staff Physician] - 3-5 Days (Housekeeping Aid) YONATHAN PRATHER MD [Staff Physician] - 3-5 Days (Primary care doctor)
--- NOTE | 2020-03-20 11:27 | XRay Report ---
CHEST 1 VIEW 03/20/2020 10:19 AM INDICATION / CLINICAL INFORMATION: Chest Pain. COMPARISON: 08/23/2019 FINDINGS: SUPPORT DEVICES: None. HEART / MEDIASTINUM: No significant abnormality. LUNGS / PLEURA: No significant pulmonary or pleural abnormality. No pneumothorax. ADDITIONAL FINDINGS: No significant additional findings. IMPRESSION: 1. No acute findings. No significant change. Signer Name: Raul Steele MD Signed: 03/20/2020 11:23 AM Workstation Name: [id number]
[2020-03-20 11:33] LABS: Basophils # (Auto) 0.1 K/mm3 (0.0-0.1); Basophils % (Auto) 0.9 % (0.0-1.8); Eosinophils # (Auto) 0.1 K/mm3 (0.0-0.4); Eosinophils % (Auto) 2.4 % (0.0-4.3); Hematocrit 46.2 % (35.5-45.6); Hemoglobin 15.6 gm/dl (11.8-15.2); Lymphocytes # (Auto) 2.2 K/mm3 (1.2-5.4); Lymphocytes % (Auto) 36.2 % (13.4-35.0); Mean Corpuscular HGB Conc 34 % (32-34); Mean Corpuscular Volume 87 fl (84-94); Monocytes # (Auto) 0.9 K/mm3 (0.0-0.8); Monocytes % (Auto) 14.4 % (0.0-7.3); Platelet Count 265 K/mm3 (140-440); Red Blood Count 5.29 M/mm3 (3.65-5.03); Red Cell Distribution Width 14.2 % (13.2-15.2)
[2020-03-20 11:38] LABS: BUN/Creatinine Ratio 17; Blood Urea Nitrogen 19 mg/dL (9-20); Calcium 9.3 mg/dL (8.4-10.2); Hemolysis Index 5
--- NOTE | 2020-03-20 13:10 | Consultation ---
History of Present Illness Consult date: 03/20/20 Consult reason: chest pain History of present illness: This is a 59-year old male with a history of hypertension and coronary artery disease. In 2017, he underwent coronary stenting of the distal right coronary artery with a drug-eluting stent, indication at that time was unstable angina. In 2018, a follow-up Lexiscan thallium stress test was negative. More recently, 6 months ago he was admitted to this hospital with atypical chest pain. At that time a stress thallium test was negative. An echocardiogram showed a left ventricular ejection fraction of 50-55%, mild to moderate left ventricle hypertrophy, and mild mitral regurgitation. Co-morbidities includes poor compliance with medical therapy and outpatient doctor visits including his outpatient cardiac follow-ups. He presents to the hospital with severe uncontrolled hypertension. Blood pressure 217/138 on presentation. Patient reports he has been out of his medications for several weeks ago. In addition, while in the emergency department, he complained of left-sided chest pain. Chest pain is atypical and non-exertional. There is no unusual shortness of breath. ECG is normal sinus rhythm, left ventricle hypertrophy with repolarization abnormalities. His ECG is unchanged from his previous. Medications and Allergies Allergies Allergy/AdvReac Type Severity Reaction Status Date / Time prednisone Allergy Hives Verified 01/03/18 09:15 acetaminophen [From Percocet] AdvReac Dizziness Verified 01/03/18 09:15 oxycodone [From Percocet] AdvReac Dizziness Verified 01/03/18 09:15 oxycodone HCl [From Percocet] AdvReac Unknown Verified 01/03/18 09:15 Home Medications Medication Instructions Recorded Confirmed Last Taken Type Zolpidem [Ambien] 5 mg PO QHS PRN #10 tablet 11/10/16 03/20/20 12/21/19 Rx Ticagrelor [Brilinta] 90 mg PO BID #60 tablet 02/20/17 03/20/20 12/21/19 Rx Aspirin [Adult Low Dose Aspirin EC] 81 mg PO DAILY #30 tablet. 12/20/17 03/20/20 12/21/19 Rx Ketorolac [Toradol] 10 mg PO Q6H PRN #14 tablet 01/03/18 03/20/20 12/21/19 Rx Ondansetron [Zofran ODT TAB] 4 mg PO Q8HR PRN #14 tab.rapdis 01/03/18 03/20/20 12/21/19 Rx AtorvaSTATin [Lipitor] 40 mg PO QHS #30 tablet 08/24/19 03/20/20 12/21/19 Rx Clopidogrel [Plavix] 75 mg PO QDAY #30 tablet 08/24/19 03/20/20 12/21/19 Rx Famotidine [Pepcid] 20 mg PO BID #60 tablet 08/24/19 03/20/20 12/21/19 Rx Losartan [Cozaar] 50 mg PO QDAY #30 tablet 08/24/19 03/20/20 12/21/19 Rx Metoprolol [Lopressor TAB] 50 mg PO BID #60 tablet 08/24/19 03/20/20 12/21/19 Rx NIFEdipine XL [Procardia Xl] 60 mg PO QDAY #30 tablet 08/24/19 03/20/20 12/21/19 Rx Physical Examination Vital Signs Temp Pulse Resp BP Pulse Ox 98.2 F 72 18 208/132 96 03/20/20 10:42 03/20/20 10:42 03/20/20 10:42 03/20/20 10:42 03/20/20 10:42 General appearance: no acute distress HEENT: Positive: PERRL Neck: Positive: trachea midline Cardiac: Positive: Reg Rate and Rhythm Lungs: Positive: Decreased Breath Sounds Neuro: Positive: Grossly Intact Extremities: Absent: edema Results 03/20/20 10:47 03/20/20 10:47 CBC 03/20/20 Range/Units 10:47 WBC 6.0 (4.5-11.0) K/mm3 RBC 5.29 H (3.65-5.03) M/mm3 Hgb 15.6 H (11.8-15.2) gm/dl Hct 46.2 H (35.5-45.6) % Plt Count 265 (140-440) K/mm3 Lymph # (Auto) 2.2 (1.2-5.4) K/mm3 [place] # (Auto) 0.9 H (0.0-0.8) K/mm3 Eos # (Auto) 0.1 (0.0-0.4) K/mm3 Baso # (Auto) 0.1 (0.0-0.1) K/mm3 Comprehensive Metabolic Panel 03/20/20 Range/Units 10:47 Sodium 137 (137-145) mmol/L Potassium 3.3 L (3.6-5.0) mmol/L Chloride 93.0 L (98-107) mmol/L Carbon Dioxide 37 H (22-30) mmol/L BUN 19 (9-20) mg/dL Creatinine 1.1 (0.8-1.3) mg/dL Glucose 125 H (75-100) mg/dL Calcium 9.3 (8.4-10.2) mg/dL Assessment and Plan Atypical chest pain no reversible ischemia by MPI 08/2019 LVEF 50-55% by echo 08/2019 Hypertensive -uncontrolled Hx of CAD s/p PCI of the RCA 11/2016 Noncompliant with medications and outpatient cardiac follow up. Recommendations: Resume medical therapy for coronary artery disease and chronic hypertension. Patient advised compliance with his medications and to follow up with a PCP and field professional as an outpatient
[2020-03-20] MEDS ORDERED: POTASSIUM CHLORIDE ER 20 MEQ TAB PO ONE (14:13)
[2020-03-20] MEDS ORDERED: amLODIPine 10 MG TAB PO SCH (15:00)
[2020-03-20] MEDS ORDERED: LOSARTAN 25 MG TAB PO SCH (15:00)
[2020-03-20] MEDS ORDERED: METOPROLOL TARTRATE 50 MG TAB PO SCH ×2 (15:00→22:00)
[2020-03-20] MEDS ORDERED: LOSARTAN 50 MG TAB PO SCH (16:00)
[2020-03-20 16:12] VITALS: BP 148/94
[2020-03-21] MEDS ORDERED: ASPIRIN 81 MG TAB CHEW PO SCH (10:00)
[2020-03-21] MEDS ORDERED: LOSARTAN 50 MG TAB PO SCH (10:00)
[2020-03-21] MEDS ORDERED: CLOPIDOGREL 75 MG TAB PO SCH (10:00)
== END 2020-03-20 16:10 | disposition home or self-care (01) ==
LOC: ED 10:29
DX: R07.89 Other chest pain (principal); I10 Essential (primary) hypertension; E78.00 Pure hypercholesterolemia, unspecified; Z95.818 Presence of other cardiac implants and grafts; Z79.899 Other long term (current) drug therapy; Z88.1 Allergy status to other antibiotic agents; Z88.6 Allergy status to analgesic agent
CPT/HCPCS: 36415; 71045; 80048; 84484; 85025; 85379; 93005